=== PATIENT | male | born 1980 | race Caucasian/White ===

== ENCOUNTER 2018-12-30 16:48 | Emergency (ER) | payer BC, OTHER ==
--- NOTE | 2018-12-30 17:21 | EDM.PDOC ---
ED HPI GENERAL MEDICAL PROBLEM - General Chief Complaint: Eye Problems Stated Complaint: RED EYES Time Seen by Provider: 12/30/18 16:58 Source of Information: Reports: Patient History Limitations: Reports: No Limitations - History of Present Illness INITIAL COMMENTS - FREE TEXT/NARRATIVE: Presents reporting eye irritation. The patient states that one week ago he went to his eye doctor and got a new brand of contact lenses. As directed, he took the lenses out and cleaned them and then reinserted them. He wears them 24 7. Within 24 hours after the cleaning, his eyes are pink, red, itchy and irritated , with some yellowish discharge. Aside from a "film" over his eye at times his vision is good. He has a long time contact lens wearer. - Related Data Allergies Allergy/AdvReac Type Severity Reaction Status Date / Time No Known Allergies Allergy Verified 12/30/18 16:59 Home Meds: Home Meds Chema/Polymyx B Sulf/Dexameth [Tcbygs-Wkhag-Qgfpgvyq Eye Drop] 3 drop OP QID #1 bottle 12/30/18 [Rx] Past Medical History - Past Health History Medical/Surgical History: Denies Medical/Surgical History HEENT History: Reports: None Cardiovascular History: Reports: None Respiratory History: Reports: None Gastrointestinal History: Reports: None Genitourinary History: Reports: None Musculoskeletal History: Reports: None Neurological History: Reports: None Psychiatric History: Reports: None Endocrine/Metabolic History: Reports: None Hematologic History: Reports: None Immunologic History: Reports: None Oncologic (Cancer) History: Reports: None Dermatologic History: Reports: None - Infectious Disease History Infectious Disease History: Reports: Chicken Pox - Past Surgical History Head Surgeries/Procedures: Reports: None HEENT Surgical History: Reports: None Cardiovascular Surgical History: Reports: None Respiratory Surgical History: Reports: None GI Surgical History: Reports: None Male Surgical History: Reports: None Endocrine Surgical History: Reports: None Neurological Surgical History: Reports: None Musculoskeletal Surgical History: Reports: None Oncologic Surgical History: Reports: None Dermatological Surgical History: Reports: None Social & Family History - Family History Family Medical History: Noncontributory Cardiac: Reports: Hypertension - Tobacco Use Smoking Status *Q: Never Smoker - Caffeine Use Caffeine Use: Reports: Energy Drinks - Recreational Drug Use Recreational Drug Use: No ED ROS GENERAL - Review of Systems Review Of Systems: ROS reveals no pertinent complaints other than HPI. ED EXAM GENERAL W FULL EYE - Physical Exam Exam: See Below Exam Limited By: No Limitations General Appearance: Alert, No Apparent Distress Eye Exam: Bilateral Eye: Conjunctival Injection, EOMI, PERRL Visual Acuity (R) 20/: 20 Visual Acuity (L) 20/: 30 Eyelids: Bilateral: Normal Appearance Conjunctiva & Sclera: Bilateral: Discharge, Injected Extraocular Movements: Bilateral: Intact Pupils: Normal Accommodation Pupillary Size: Bilateral: 4 mm Pupillary Reaction: Bilateral: Brisk Ears: Normal External Exam Nose: Normal Inspection Throat/Mouth: Normal Inspection Head: Atraumatic, Normocephalic Neck: Normal Inspection Respiratory/Chest: No Respiratory Distress, Lungs Clear Cardiovascular: Normal Peripheral Pulses, Regular Rate, Rhythm, No Murmur Neurological: Alert, Oriented Psychiatric: Normal Affect, Normal Mood Skin Exam: Warm, Dry, Intact, Normal Color, No Rash Lymphatic: No Adenopathy Course - Vital Signs Last Recorded V/S: Last Vital Signs Temp 36.1 C 12/30/18 17:00 Pulse 91 12/30/18 17:00 Resp 18 12/30/18 17:00 BP 163/113 H 12/30/18 17:00 Pulse Ox 96 12/30/18 17:00 Departure - Departure Time of Disposition: 17:21 Disposition: Home, Self-Care 01 Condition: Good Clinical Impression: Conjunctivitis Qualifiers: Conjunctivitis type: acute Acute conjunctivitis type: unspecified Laterality: bilateral Qualified Code(s): H10.33 - Unspecified acute conjunctivitis, bilateral - Discharge Information Referrals: PCP,None [Primary Care Provider] - [facility] [Outside] Additional Instructions: 1. Eyedrops 2-3 drops 4 times a day at least 2-3 days until symptoms resolve. 2. Throw away current set of contact lenses. After all symptoms resolve place a new pair of contact lenses 3. After disinfecting, thoroughly rinse with plain saline. 4. 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
== END 2018-12-30 17:35 | disposition home or self-care (01) ==
LOC: MW.ED 16:48
DX: H10.33 Unspecified acute conjunctivitis, bilateral (principal)
CPT/HCPCS: 99282

== ENCOUNTER 2019-02-18 04:56 | Emergency (ER) | payer SELFPAY ==
--- NOTE | 2019-02-18 05:07 | EDM.PDOC ---
ED HPI GENERAL MEDICAL PROBLEM - General Chief Complaint: Lower Extremity Injury/Pain Stated Complaint: GOUT FLAREUP IN LEFT KNEE Time Seen by Provider: 02/18/19 05:04 - History of Present Illness INITIAL COMMENTS - FREE TEXT/NARRATIVE: HISTORY AND PHYSICAL: History of present illness: The patient is a 38-year-old male has a history of 2 prior gout attacks in his feet presents with onset of left knee pain that started 2 days ago and has been gradually worsening. He says the pain feels very similar to his prior gout attack. He denies any trauma with that knee and he has no systemic complaints of fever chills nausea vomiting chest pain or shortness of breath. The patient says in the past he had his blood tested which showed an elevated uric acid. He says that in the past he has been treated with prednisone and it is improved and he took allopurinol for 2 months and he did not have any gout until this recent episode. He follows at [facility] with Dr. Rueda. He has no weakness neurosensory changes in his left leg and no other joint pain or swelling. Review of systems: As per history of present illness and below otherwise all systems reviewed and negative. Past medical history: As per history of present illness and as reviewed below otherwise noncontributory. Surgical history: As per history of present illness and as reviewed below otherwise noncontributory. Social history: No reported history of drug or alcohol abuse. Family history: As per history of present illness and as reviewed below otherwise noncontributory. Physical exam: General: Well-developed well-nourished man who is nontoxic and vital signs are noted by me HEENT: Atraumatic, normocephalic, negative for conjunctival pallor or scleral icterus, mucous membranes moist, throat clear, neck supple, nontender, trachea midline. Lungs: Clear to auscultation, breath sounds equal bilaterally, chest nontender. Heart: S1S2, regular rate and rhythm no overt murmurs Abdomen: Soft, nondistended, nontender. Negative for masses or hepatosplenomegaly. Negative for costovertebral tenderness. Pelvis: Stable nontender. Genitourinary: Deferred. Rectal: Deferred. Extremities: Atraumatic and full range of motion of all extremities with the exception of the left knee where there is decreased range of motion secondary to discomfort. There are no palpable bony deformities and there is only minimal soft tissue swelling and no evidence of any erythema or ecchymosis. There is some palpable warmth compared to the right knee and there is no evidence of any distal or proximal bony tenderness defects or deformities. The legs are, negative for cords or calf pain. Neurovascular unremarkable. Neuro: Awake, alert, oriented. Cranial nerves II through XII unremarkable. Cerebellum unremarkable. Motor and sensory unremarkable throughout. Exam nonfocal. Diagnostics: I offered the patient x-ray as well as blood work and he declines Therapeutics: Toradol prednisone Milo bandage/neoprene sling Patient was offered diagnostic testing as above but he declines and wants to be treated solely as gout with anti-inflammatories and steroids as I recommended. Impression: Left knee pain with history of gout Definitive disposition and diagnosis as appropriate pending reevaluation and review of above. left knee Pain Score (Numeric/FACES): 8 - Related Data Allergies Allergy/AdvReac Type Severity Reaction Status Date / Time No Known Allergies Allergy Verified 02/18/19 05:04 Past Medical History - Past Health History Medical/Surgical History: Denies Medical/Surgical History HEENT History: Reports: None Cardiovascular History: Reports: None Respiratory History: Reports: None Gastrointestinal History: Reports: None Genitourinary History: Reports: None Musculoskeletal History: Reports: None Neurological History: Reports: None Psychiatric History: Reports: None Endocrine/Metabolic History: Reports: None Hematologic History: Reports: None Immunologic History: Reports: None Oncologic (Cancer) History: Reports: None Dermatologic History: Reports: None - Infectious Disease History Infectious Disease History: Reports: Chicken Pox - Past Surgical History Head Surgeries/Procedures: Reports: None HEENT Surgical History: Reports: None Cardiovascular Surgical History: Reports: None Respiratory Surgical History: Reports: None GI Surgical History: Reports: None Male Surgical History: Reports: None Endocrine Surgical History: Reports: None Neurological Surgical History: Reports: None Musculoskeletal Surgical History: Reports: None Oncologic Surgical History: Reports: None Dermatological Surgical History: Reports: None Social & Family History - Family History Family Medical History: Noncontributory Cardiac: Reports: Hypertension - Caffeine Use Caffeine Use: Reports: Energy Drinks Review of Systems - Review of Systems Review Of Systems: ROS reveals no pertinent complaints other than HPI. ED EXAM, GENERAL - Physical Exam Exam: See Below (see dictation) Course - Vital Signs Last Recorded V/S: Last Vital Signs Temp 36.0 C 02/18/19 05:05 Pulse 108 H 02/18/19 05:05 Resp 18 02/18/19 05:05 BP 199/120 H 02/18/19 05:05 Pulse Ox 98 02/18/19 05:05 - Orders/Labs/Meds Orders: Active Orders 24 hr Category Date Time Status Ketorolac [Toradol] Med 02/18/19 05:12 Once 60 mg IM ONETIME ONE predniSONE Med 02/18/19 05:13 Once 20 mg PO ONETIME ONE Departure - Departure Time of Disposition: 05:16 Disposition: Home, Self-Care 01 Condition: Good Clinical Impression: History of gout Left knee pain Qualifiers: Chronicity: acute Qualified Code(s): M25.562 - Pain in left knee - Discharge Information Referrals: PCP,None [Primary Care Provider] - Forms: ED Department Discharge Additional Instructions: The following information is given to patients seen in the emergency department who are being discharged to home. This information is to outline your options for follow-up care. We provide all patients seen in our emergency department with a follow-up referral. The need for follow-up, as well as the timing and circumstances, are variable depending upon the specifics of your emergency department visit. If you don't have a primary care physician on staff, we will provide you with a referral. We always advise you to contact your personal physician following an emergency department visit to inform them of the circumstance of the visit and for follow-up with them and/or the need for any referrals to a consulting specialist. The emergency department will also refer you to a specialist when appropriate. This referral assures that you have the opportunity for followup care with a specialist. All of these measure are taken in an effort to provide you with optimal care, which includes your followup. Under all circumstances we always encourage you to contact your private physician who remains a resource for coordinating your care. When calling for followup care, please make the office aware that this follow-up is from your recent emergency room visit. If for any reason you are refused follow-up, please contact the [facility] emergency department at and ask to speak to the emergency department charge nurse. [facility] Primary care- Internal Medicine and Family [place] [phone] Ice and elevate the area as much as possible and wear the splint given to you for support and to reduce swelling. Please take all medications as prescribed and please schedule a follow-up appointment with your provider Dr. Rueda at [facility] for further care and evaluation as we discussed. Return to ER as needed and as discussed - My Orders Last 24 Hours: My Active Orders 02/18/19 05:12 Ketorolac [Toradol] 60 mg IM ONETIME ONE 02/18/19 05:13 predniSONE 20 mg PO ONETIME ONE - Assessment/Plan Last 24 Hours: My Active Orders 02/18/19 05:12 Ketorolac [Toradol] 60 mg IM ONETIME ONE 02/18/19 05:13 predniSONE 20 mg PO ONETIME ONE
[2019-02-18] MEDS ORDERED: Ketorolac 60 MG/2 ML SDV IM ONE (05:12)
[2019-02-18] MEDS ORDERED: predniSONE 20 MG Tab PO ONE (05:13)
== END 2019-02-18 05:52 | disposition home or self-care (01) ==
LOC: MW.ED 04:56
DX: M25.562 Pain in left knee (principal); M10.9 Gout, unspecified
CPT/HCPCS: 96372; 99283; A9270; J1885

== ENCOUNTER 2019-03-04 12:27 | Emergency (ER) | payer SELFPAY ==
[2019-03-04] MEDS ORDERED: Tetracaine HCl/PF 0.5% 4 ML Bottle EYEBOTH ONE (12:46)
--- NOTE | 2019-03-04 12:47 | EDM.PDOC ---
ED HPI GENERAL MEDICAL PROBLEM - General Chief Complaint: Eye Problems Stated Complaint: LEFT EYE PINK Time Seen by Provider: 03/04/19 12:47 Source of Information: Reports: Patient History Limitations: Reports: No Limitations - History of Present Illness INITIAL COMMENTS - FREE TEXT/NARRATIVE: HISTORY AND PHYSICAL: History of present illness: Patient is a 38-year-old male presents to the ED was completed of left eye irritation. He states that he got new contacts that are able to sleep in and states that he thinks they are bothering his eyes now. He got these new contacts 2 weeks ago and states he took them out a week ago to clean them and put them back in again. He states his eye started bothering him yesterday sees no longer wearing a contact the left eye. He does feel like there is something in his eye and it is slightly painful and light sensitive. He denies pain with eye movement, fevers, chills, headache. Review of systems: As per history of present illness and below otherwise all systems reviewed and negative. Past medical history: As per history of present illness and as reviewed below otherwise noncontributory. Surgical history: As per history of present illness and as reviewed below otherwise noncontributory. Social history: No reported history of drug or alcohol abuse. Family history: As per history of present illness and as reviewed below otherwise noncontributory. Physical exam: General: Patient sitting comfortably in no acute distress and nontoxic appearing HEENT: Left eye is injected. No pain with EOM. No foreign body with lid eversion. Small corneal abrasion with fluorescein stain and woodslamp exam. Atraumatic, normocephalic, pupils reactive, negative for conjunctival pallor or scleral icterus, mucous membranes moist, throat clear, neck supple, nontender, trachea midline. No meningeal signs. Lungs: Clear to auscultation, breath sounds equal bilaterally, chest nontender. Heart: S1S2, regular, negative for clicks, rubs, or overt murmur. Abdomen: Soft, nondistended, nontender. Negative for masses or hepatosplenomegaly. Negative for costovertebral tenderness. No rigidity, rebound , guarding. Pelvis: Stable nontender. Genitourinary: Deferred. Rectal: Deferred. Extremities: Atraumatic, negative for cords or calf pain. Neurovascular unremarkable. Neuro: Awake, alert, oriented. Cranial nerves II through XII unremarkable. Cerebellum unremarkable. Motor and sensory unremarkable throughout. Exam nonfocal. Notes: Diagnostics: Woodslamp exam Therapeutics: tetracaine ophthalmic Prescriptions: Impression: Corneal abrasion Plan: Use antibiotic ointment as instructed Follow-up with line erector Return to ED as needed as discussed Definitive disposition and diagnosis as appropriate pending reevaluation and review of above. Left Eye Pain Score (Numeric/FACES): 8 - Related Data Allergies Allergy/AdvReac Type Severity Reaction Status Date / Time No Known Allergies Allergy Verified 03/04/19 12:45 Home Meds: Home Meds . [No Known Home Meds] 03/04/19 [History] Past Medical History - Past Health History Medical/Surgical History: Denies Medical/Surgical History HEENT History: Reports: None Cardiovascular History: Reports: None Respiratory History: Reports: None Gastrointestinal History: Reports: None Genitourinary History: Reports: None Musculoskeletal History: Reports: None Neurological History: Reports: None Psychiatric History: Reports: None Endocrine/Metabolic History: Reports: None Hematologic History: Reports: None Immunologic History: Reports: None Oncologic (Cancer) History: Reports: None Dermatologic History: Reports: None - Infectious Disease History Infectious Disease History: Reports: Chicken Pox - Past Surgical History Head Surgeries/Procedures: Reports: None HEENT Surgical History: Reports: None Cardiovascular Surgical History: Reports: None Respiratory Surgical History: Reports: None GI Surgical History: Reports: None Male Surgical History: Reports: None Endocrine Surgical History: Reports: None Neurological Surgical History: Reports: None Musculoskeletal Surgical History: Reports: None Oncologic Surgical History: Reports: None Dermatological Surgical History: Reports: None Social & Family History - Family History Family Medical History: Noncontributory Cardiac: Reports: Hypertension - Caffeine Use Caffeine Use: Reports: Energy Drinks ED ROS GENERAL - Review of Systems Review Of Systems: ROS reveals no pertinent complaints other than HPI. ED EXAM GENERAL W FULL EYE - Physical Exam Exam: See Below (See dictation) Course - Vital Signs Last Recorded V/S: Last Vital Signs Temp 96.9 F 03/04/19 12:39 Pulse 74 03/04/19 12:39 Resp 18 03/04/19 12:39 BP 171/100 H 03/04/19 12:39 Pulse Ox 94 L 03/04/19 12:39 - Orders/Labs/Meds Meds: Medications Discontinued Medications Generic Name Dose Route Start Last Admin Trade Name Sherri PRN Reason Stop Dose Admin Tetracaine HCl 1 ml 03/04/19 12:46 03/04/19 13:11 Tetracaine 0.5% Steri-Unit Gerda EYEBOTH 03/04/19 12:47 1 bottle ASDIRECTED ONE Administration Departure - Departure Time of Disposition: 13:13 Disposition: Home, Self-Care 01 Condition: Good Clinical Impression: Corneal abrasion, left - Discharge Information Referrals: PCP,None [Primary Care Provider] - Forms: ED Department Discharge Additional Instructions: The following information is given to patients seen in the emergency department who are being discharged to home. This information is to outline your options for follow-up care. We provide all patients seen in our emergency department with a follow-up referral. The need for follow-up, as well as the timing and circumstances, are variable depending upon the specifics of your emergency department visit. If you don't have a primary care physician on staff, we will provide you with a referral. We always advise you to contact your personal physician following an emergency department visit to inform them of the circumstance of the visit and for follow-up with them and/or the need for any referrals to a consulting specialist. The emergency department will also refer you to a specialist when appropriate. This referral assures that you have the opportunity for follow-up care with a specialist. All of these measure are taken in an effort to provide you with optimal care, which includes your follow-up. Under all circumstances we always encourage you to contact your private physician who remains a resource for coordinating your care. When calling for follow-up care, please make the office aware that this follow-up is from your recent emergency room visit. If for any reason you are refused follow-up, please contact the [facility] Emergency Department at and asked to speak to the emergency department charge nurse. [facility] [address] [place] [address] Use antibiotic ointment as instructed Follow-up with line erector Return to ED as needed as discussed
== END 2019-03-04 13:25 | disposition home or self-care (01) ==
LOC: MW.ED 12:27
DX: S05.02XA Injury of conjunctiva and corneal abrasion without foreign body, left eye, initial encounter (principal); X58.XXXA Exposure to other specified factors, initial encounter
CPT/HCPCS: 99282

== ENCOUNTER 2019-07-07 10:42 | Emergency (ER) | payer SELFPAY ==
--- NOTE | 2019-07-07 11:10 | EDM.PDOC ---
ED HPI GENERAL MEDICAL PROBLEM - General Chief Complaint: Lower Extremity Injury/Pain Stated Complaint: GOUT FLARE UP Time Seen by Provider: 07/07/19 10:48 Source of Information: Reports: Patient History Limitations: Reports: No Limitations - History of Present Illness INITIAL COMMENTS - FREE TEXT/NARRATIVE: HISTORY AND PHYSICAL: History of present illness: Patient is a 38-year-old male who presents to the emergency room today with complaints of gout flareup. Patient states he has a history of gout and has not been taking his allopurinol as directed. He states with the holidays he has had a poor diet and has noticed some pain to the right knee. He states he has had at least 4 other gout flare ups which feels very similar to today's presentation. He denies any injury, trauma or falls. Skin is free of erythema, denies any fever/chills and denies any numbness or tingling of the affected extremity. Review of systems: As per history of present illness and below otherwise all systems reviewed and negative. Past medical history: As per history of present illness and as reviewed below otherwise noncontributory. Surgical history: As per history of present illness and as reviewed below otherwise noncontributory. Social history: See social history for further information Family history: As per history of present illness and as reviewed below otherwise noncontributory. Physical exam: General: Well-developed and well-nourished 38-year-old male. Alert and oriented. Nontoxic appearing and in no acute distress. HEENT: Atraumatic, normocephalic, pupils equal and reactive bilaterally, negative for conjunctival pallor or scleral icterus, mucous membranes moist, trachea midline. No drooling or trismus noted. No meningeal signs. No hot potato voice noted. Lungs: Clear to auscultation, breath sounds equal bilaterally, chest nontender. Heart: S1S2, regular rate and rhythm without overt murmur Abdomen: Soft, nondistended, nontender. Negative for masses or hepatosplenomegaly. Negative for costovertebral tenderness. Pelvis: Stable nontender. Skin: Intact, warm, dry. No lesions or rashes noted. Extremities: Atraumatic, moves all extremities per self without difficulty or deficits, negative for cords or calf pain. Neurovascular unremarkable. Neuro: Awake, alert, oriented. Cranial nerves II through XII unremarkable. Cerebellum unremarkable. Motor and sensory unremarkable throughout. Exam nonfocal. Notes: Patient declines wanting any diagnostics at this time. He states he is confident this is a gout flareup. The skin and extremity. Within normal limits. I did educate him on the medication and going to prescribe. Today's blood pressure is elevated. He states "this happens every time I come into the hospital". He declines wanting this evaluated further as he does monitor his blood pressure at home and states yesterday it was "normal". Supportive care measures were reviewed and discussed. Voices understanding and is agreeable to plan of care. Denies any further questions or concerns at this time. Diagnostics: None Therapeutics: None Prescription: Colchicine, indomethacin, prednisone Impression: Gout, left knee Medication noncompliance Plan: 1. Monitor your diet while you have the gout flare. 2. Take the medications as directed. 3. Follow up with your primary care provider as we discussed. Return to the ED as needed as discussed. Definitive disposition and diagnosis as appropriate pending reevaluation and review of above. - Related Data Allergies Allergy/AdvReac Type Severity Reaction Status Date / Time No Known Allergies Allergy Verified 03/04/19 12:45 Home Meds: Home Meds Colchicine 1 dose PO ASDIRECTED #3 tablet 07/07/19 [Rx] Indomethacin 50 mg PO TID 10 Days #30 capsule 07/07/19 [Rx] predniSONE [Prednisone] 30 mg PO DAILY 5 Days #15 tablet 07/07/19 [Rx] Past Medical History - Past Health History Medical/Surgical History: Denies Medical/Surgical History HEENT History: Reports: None Cardiovascular History: Reports: None Respiratory History: Reports: None Gastrointestinal History: Reports: None Genitourinary History: Reports: None Musculoskeletal History: Reports: None Neurological History: Reports: None Psychiatric History: Reports: None Endocrine/Metabolic History: Reports: None Hematologic History: Reports: None Immunologic History: Reports: None Oncologic (Cancer) History: Reports: None Dermatologic History: Reports: None - Infectious Disease History Infectious Disease History: Reports: Chicken Pox - Past Surgical History Head Surgeries/Procedures: Reports: None HEENT Surgical History: Reports: None Cardiovascular Surgical History: Reports: None Respiratory Surgical History: Reports: None GI Surgical History: Reports: None Male Surgical History: Reports: None Endocrine Surgical History: Reports: None Neurological Surgical History: Reports: None Musculoskeletal Surgical History: Reports: None Oncologic Surgical History: Reports: None Dermatological Surgical History: Reports: None Social & Family History - Family History Family Medical History: Noncontributory Cardiac: Reports: Hypertension - Caffeine Use Caffeine Use: Reports: Energy Drinks Review of Systems - Review of Systems Review Of Systems: Comprehensive ROS is negative, except as noted in HPI. ED EXAM, GENERAL - Physical Exam Exam: See Below (See dictation) Course - Vital Signs Last Recorded V/S: Last Vital Signs Temp 98.0 F 07/07/19 11:04 Pulse 88 07/07/19 11:04 Resp 18 07/07/19 11:04 BP 176/116 H 07/07/19 11:04 Pulse Ox Departure - Departure Time of Disposition: 11:09 Disposition: Home, Self-Care 01 Clinical Impression: Noncompliance with medication regimen Gout attack Qualifiers: Gout site: knee Gout etiology: unspecified cause Laterality: right Qualified Code(s): M10.9 - Gout, unspecified - Discharge Information Prescriptions: Colchicine 1 dose PO ASDIRECTED #3 tablet Indomethacin 50 mg PO TID 10 Days #30 capsule predniSONE [Prednisone] 30 mg PO DAILY 5 Days #15 tablet Instructions: Gout, [id number] Referrals: PCP,None [Primary Care Provider] - Forms: ED Department Discharge Additional Instructions: The following information is given to patients seen in the emergency department who are being discharged to home. This information is to outline your options for follow-up care. We provide all patients seen in our emergency department with a follow-up referral. The need for follow-up, as well as the timing and circumstances, are variable depending upon the specifics of your emergency department visit. If you don't have a primary care physician on staff, we will provide you with a referral. We always advise you to contact your personal physician following an emergency department visit to inform them of the circumstance of the visit and for follow-up with them and/or the need for any referrals to a consulting specialist. The emergency department will also refer you to a specialist when appropriate. This referral assures that you have the opportunity for follow-up care with a specialist. All of these measure are taken in an effort to provide you with optimal care, which includes your follow-up. Under all circumstances we always encourage you to contact your private physician who remains a resource for coordinating your care. When calling for follow-up care, please make the office aware that this follow-up is from your recent emergency room visit. If for any reason you are refused follow-up, please contact the [facility] Emergency Department at and asked to speak to the emergency department charge nurse. [facility] [address] [place] [id number] [facility] [address] [place] [id number] 1. Monitor your diet while you have the gout flare. 2. Take the medications as directed. 3. Follow up with your primary care provider as we discussed. Return to the ED as needed as discussed. Sepsis Event Note - Focused Exam Vital Signs: Vital Signs Temp Pulse Resp BP 07/07/19 11:04 98.0 F 88 18 176/116 H Date Exam was Performed: 07/07/19 Time Exam was Performed: 11:20
== END 2019-07-07 11:24 | disposition home or self-care (01) ==
LOC: MW.ED 10:42
DX: M10.9 Gout, unspecified (principal); Z91.14 Patient's other noncompliance with medication regimen
CPT/HCPCS: 99282; 99283

== ENCOUNTER 2020-01-25 16:14 | Emergency (ER) | payer SELFPAY ==
[2020-01-25] MEDS ORDERED: Sodium Chloride 0.9% 1,000 ML IV ONE (16:34)
[2020-01-25] MEDS ORDERED: Ondansetron 4 MG/2 ML SDV IVPUSH ONE (17:01)
--- NOTE | 2020-01-25 17:01 | EDM.PDOC ---
ED HPI GENERAL MEDICAL PROBLEM - General Chief Complaint: Gastrointestinal Problem Stated Complaint: NAUSEA/VOMITING Time Seen by Provider: 01/25/20 16:28 Source of Information: Reports: Patient History Limitations: Reports: No Limitations - History of Present Illness INITIAL COMMENTS - FREE TEXT/NARRATIVE: HISTORY AND PHYSICAL: History of present illness: Patient is a 39-year-old male who presents to the emergency room with complaints of nausea and vomiting that started this morning. He does not recall anything in particular that precipitated his symptoms. He is concerned he may be dehydrated due to the frequent vomiting. He states he has been scared to eat or drink with concern he may "puke". He does want to bring it to my attention that he had recently been brought back to work after having been laid off for 6 months. He states during that time he had been drinking quite heavily out of boredom. States he has not had any alcohol in approximately 2 weeks. Denies any drug abuse. Patient denies any fever, chills, headache, change in vision, syncope or near syncope. Denies any chest pain, back pain, shortness of breath or cough. Denies any abdominal pain, diarrhea, constipation or dysuria. Has not noted any blood in urine or stool. He denies any recent exposures to anyone who is been ill, no recent travel. Review of systems: As per history of present illness and below otherwise all systems reviewed and negative. Past medical history: As per history of present illness and as reviewed below otherwise noncontributory. Surgical history: As per history of present illness and as reviewed below otherwise noncontributory. Social history: See social history for further information Family history: As per history of present illness and as reviewed below otherwise noncontributory. Physical exam: General: Well-developed and well-nourished 39-year-old male. Alert and oriented. Nontoxic-appearing and in no acute distress. HEENT: Atraumatic, normocephalic, pupils equal and reactive bilaterally, negative for conjunctival pallor or scleral icterus, mucous membranes moist, TMs normal bilaterally, throat clear, neck supple, nontender, trachea midline. No drooling or trismus noted. No meningeal signs. No hot potato voice noted. Lungs: Clear to auscultation, breath sounds equal bilaterally, chest nontender. Heart: S1S2, regular rate and rhythm without overt murmur Abdomen: Soft, nondistended, nontender. No rebound tenderness. Negative Tello sign. Negative for masses or hepatosplenomegaly. Negative for costovertebral tenderness. Skin: Intact, warm, dry. No jaundice noted. No lesions or rashes noted. Extremities: Atraumatic, moves all extremities per self without difficulty or deficits, negative for cords or calf pain. Neurovascular unremarkable. Neuro: Awake, alert, oriented. Cranial nerves II through XII unremarkable. Cerebellum unremarkable. Motor and sensory unremarkable throughout. Exam nonfocal. Notes: Patient's total bili is 1.4 with moderate noted in urine. He is feeling better after the IV fluids and Zofran. Continues to deny any abdominal pain. He is agreeable to doing an ultrasound of his gallbladder due to his lab values. We will give him some Cipro for his bladder infection. He refuses wanting any STD screening at this time. Vital signs remained stable. Verbally reviewed case with Dr Allison. Ultrasound shows small amount of sludge within the gallbladder with no biliary duct dilatation. Pseudo-wall thickening is noted within the gallbladder due to lack of good distention. Liver is generous in size, due to fatty infiltration. There is some bowel gas obscuring midline structures. fuel verification technician sees no obstructing stones. Hepatitis panel has been added onto patient lab work. We did discuss the diagnostic findings in detail. He states he feels much improved after the IV fluids and Zofran. I have encouraged him to follow-up with his primary care provider, calling tomorrow to make a follow-up appointment regarding his abnormal lab values. We discussed signs and symptoms that would prompt him to return to the emergency room. Follow-up, medication and supportive care measures were reviewed and discussed. Voices understanding and is agreeable to plan of care. Denies any further questions or concerns at this time. Diagnostics: CBC, CMP, UA, lipase, U/S gallbladder, Hepatitis Panel Therapeutics: IV fluid, Zofran, Cipro Prescription: Cipro Impression: Nausea and vomiting Elevated bilirubin UTI Plan: 1. Your lab work shows that your bilirubin is elevated. We did an ultrasound that shows your gallbladder is within normal limits at this time. A hepatitis panel has been added to your lab work, this is a send out. We will not get results of this test till the end of the week. If you should have any new or worsening symptoms please return to the ED. 2. [place] diet, advance as tolerated. Increase your oral fluids to prevent dehydration. You may alternate Tylenol and ibuprofen as needed for pain management. 3. Follow-up with your primary care provider as we discussed. Return to the ED as needed and as discussed. Definitive disposition and diagnosis as appropriate pending reevaluation and review of above. - Related Data Allergies Allergy/AdvReac Type Severity Reaction Status Date / Time No Known Allergies Allergy Verified 01/25/20 16:54 Home Meds: Home Meds Ciprofloxacin HCl [Cipro] 500 mg PO BID 5 Days #10 tablet 01/25/20 [Rx] Past Medical History - Past Health History Medical/Surgical History: Denies Medical/Surgical History HEENT History: Reports: None Cardiovascular History: Reports: None Respiratory History: Reports: None Gastrointestinal History: Reports: None Genitourinary History: Reports: None Musculoskeletal History: Reports: None Other Musculoskeletal History: lower extremity pain from gout Neurological History: Reports: None Psychiatric History: Reports: None Endocrine/Metabolic History: Reports: None Hematologic History: Reports: None Immunologic History: Reports: None Oncologic (Cancer) History: Reports: None Dermatologic History: Reports: None - Infectious Disease History Infectious Disease History: Reports: Chicken Pox - Past Surgical History Head Surgeries/Procedures: Reports: None HEENT Surgical History: Reports: None Cardiovascular Surgical History: Reports: None Respiratory Surgical History: Reports: None GI Surgical History: Reports: None Male Surgical History: Reports: None Endocrine Surgical History: Reports: None Neurological Surgical History: Reports: None Musculoskeletal Surgical History: Reports: None Oncologic Surgical History: Reports: None Dermatological Surgical History: Reports: None Social & Family History - Family History Family Medical History: Noncontributory Cardiac: Reports: Hypertension - Caffeine Use Caffeine Use: Reports: Energy Drinks ED ROS GENERAL - Review of Systems Review Of Systems: Comprehensive ROS is negative, except as noted in HPI. ED EXAM, GI/ABD - Physical Exam Exam: See Below (See dictation) Course - Vital Signs Last Recorded V/S: Last Vital Signs Temp 97.7 F 01/25/20 16:55 Pulse 88 01/25/20 16:55 Resp 17 01/25/20 16:55 BP 142/85 H 01/25/20 16:55 Pulse Ox 95 01/25/20 16:55 - Orders/Labs/Meds Orders: Active Orders 24 hr Category Date Time Status CULTURE URINE [RM] Stat Lab 01/25/20 17:01 Received HEPATITIS PANEL (4) [REF] Stat Lab 01/25/20 19:35 Ordered Labs: Laboratory Tests 01/25/20 01/25/20 01/25/20 Range/Units 17:01 17:11 17:11 WBC 9.20 (4.0-11.0) K/uL RBC 4.16 L (4.50-5.90) M/uL Hgb 14.1 (13.0-17.0) g/dL Hct 41.1 (38.0-50.0) % MCV 98.8 H (80.0-98.0) fL MCH 33.9 H (27.0-32.0) pg MCHC 34.3 (31.0-37.0) g/dL RDW Std Deviation 49.5 (28.0-62.0) fl RDW Coeff of Jannette 14 (11.0-15.0) % Plt Count 204 (150-400) K/uL MPV 9.10 (7.40-12.00) fL Neut % (Auto) 70.4 (48.0-80.0) % Lymph % (Auto) 17.4 (16.0-40.0) % [place] % (Auto) 10.5 (0.0-15.0) % Eos % (Auto) 0.9 (0.0-7.0) % Baso % (Auto) 0.8 (0.0-1.5) % Neut # (Auto) 6.5 H (1.4-5.7) K/uL Lymph # (Auto) 1.6 (0.6-2.4) K/uL [place] # (Auto) 1.0 H (0.0-0.8) K/uL Eos # (Auto) 0.1 (0.0-0.7) K/uL Baso # (Auto) 0.1 (0.0-0.1) K/uL Nucleated RBC % 0.0 /100WBC Nucleated RBCs # 0 K/uL Sodium 136 (136-148) mmol/L Potassium 3.4 L (3.5-5.1) mmol/L Chloride 100 (98-107) mmol/L Carbon Dioxide 26.0 (21.0-32.0) mmol/L BUN 3 L (7.0-18.0) mg/dL Creatinine 0.6 L (0.8-1.3) mg/dL Est Cr Clr Drug Dosing 168.98 mL/min Estimated GFR (MDRD) > 60.0 ml/min Glucose 121 H (74-106) mg/dL Calcium 9.4 (8.5-10.1) mg/dL Total Bilirubin 1.4 H (0.2-1.0) mg/dL AST 164 H (15-37) IU/L ALT 61 (14-63) IU/L Alkaline Phosphatase 461 H (46-116) U/L Total Protein 9.8 H (6.4-8.2) g/dL Albumin 3.3 L (3.4-5.0) g/dL Globulin 6.5 H (2.6-4.0) g/dL Albumin/Globulin Ratio 0.5 L (0.9-1.6) Lipase (73-393) U/L Urine Color DARK YELLOW Urine Appearance SLT CLOUDY Urine pH 6.0 (5.0-8.0) Ur Specific [place] >= 1.030 (1.001-1.035) Urine Protein 30 H (NEGATIVE) mg/dL Urine Glucose (UA) NEGATIVE (NEGATIVE) mg/dL Urine Ketones TRACE H (NEGATIVE) mg/dL Urine Occult Blood NEGATIVE (NEGATIVE) Urine Nitrite POSITIVE H (NEGATIVE) Urine Bilirubin MODERATE H (NEGATIVE) Urine Ictotest NEGATIVE Urine Urobilinogen 4.0 H (<2.0) EU/dL Ur Leukocyte Esterase NEGATIVE (NEGATIVE) Urine RBC NONE SEEN (0-2/HPF) Urine WBC 2-4 (0-5/HPF) Ur Epithelial Cells NOT SEEN (NONE-FEW) Amorphous Sediment MODERATE (NEGATIVE) Urine Bacteria 1+ H (NEGATIVE) Urine Mucus FEW (NONE-MOD) 01/25/20 Range/Units 17:11 WBC (4.0-11.0) K/uL RBC (4.50-5.90) M/uL Hgb (13.0-17.0) g/dL Hct (38.0-50.0) % MCV (80.0-98.0) fL MCH (27.0-32.0) pg MCHC (31.0-37.0) g/dL RDW Std Deviation (28.0-62.0) fl RDW Coeff of Jannette (11.0-15.0) % Plt Count (150-400) K/uL MPV (7.40-12.00) fL Neut % (Auto) (48.0-80.0) % Lymph % (Auto) (16.0-40.0) % [place] % (Auto) (0.0-15.0) % Eos % (Auto) (0.0-7.0) % Baso % (Auto) (0.0-1.5) % Neut # (Auto) (1.4-5.7) K/uL Lymph # (Auto) (0.6-2.4) K/uL [place] # (Auto) (0.0-0.8) K/uL Eos # (Auto) (0.0-0.7) K/uL Baso # (Auto) (0.0-0.1) K/uL Nucleated RBC % /100WBC Nucleated RBCs # K/uL Sodium (136-148) mmol/L Potassium (3.5-5.1) mmol/L Chloride (98-107) mmol/L Carbon Dioxide (21.0-32.0) mmol/L BUN (7.0-18.0) mg/dL Creatinine (0.8-1.3) mg/dL Est Cr Clr Drug Dosing mL/min Estimated GFR (MDRD) ml/min Glucose (74-106) mg/dL Calcium (8.5-10.1) mg/dL Total Bilirubin (0.2-1.0) mg/dL AST (15-37) IU/L ALT (14-63) IU/L Alkaline Phosphatase (46-116) U/L Total Protein (6.4-8.2) g/dL Albumin (3.4-5.0) g/dL Globulin (2.6-4.0) g/dL Albumin/Globulin Ratio (0.9-1.6) Lipase 161 (73-393) U/L Urine Color Urine Appearance Urine pH (5.0-8.0) Ur Specific [place] (1.001-1.035) Urine Protein (NEGATIVE) mg/dL Urine Glucose (UA) (NEGATIVE) mg/dL Urine Ketones (NEGATIVE) mg/dL Urine Occult Blood (NEGATIVE) Urine Nitrite (NEGATIVE) Urine Bilirubin (NEGATIVE) Urine Ictotest Urine Urobilinogen (<2.0) EU/dL Ur Leukocyte Esterase (NEGATIVE) Urine RBC (0-2/HPF) Urine WBC (0-5/HPF) Ur Epithelial Cells (NONE-FEW) Amorphous Sediment (NEGATIVE) Urine Bacteria (NEGATIVE) Urine Mucus (NONE-MOD) Meds: Medications Discontinued Medications Generic Name Dose Route Start Last Admin Trade Name Freq PRN Reason Stop Dose Admin Ciprofloxacin 500 mg 01/25/20 17:44 01/25/20 18:29 Ciprofloxacin Hcl PO 01/25/20 17:45 500 mg ONETIME ONE Administration Sodium Chloride 1,000 mls @ 999 mls/hr 01/25/20 16:34 01/25/20 17:05 Normal Saline IV 01/25/20 17:34 999 mls/hr STAT ONE Administration Ondansetron HCl 4 mg 01/25/20 17:01 01/25/20 17:16 Zofran IVPUSH 01/25/20 17:02 4 mg ONETIME ONE Administration Departure - Departure Time of Disposition: 19:50 Disposition: Home, Self-Care 01 Clinical Impression: UTI, Urinary tract infectious disease, Total bilirubin, elevated Nausea and vomiting Qualifiers: Vomiting type: unspecified Vomiting Intractability: non-intractable Qualified Code(s): R11.2 - Nausea with vomiting, unspecified - Discharge Information Prescriptions: Ciprofloxacin HCl [Cipro] 500 mg PO BID 5 Days #10 tablet Instructions: Urinary Tract Infection, Adult, [id number] Referrals: PCP,None [Primary Care Provider] - Forms: ED Department Discharge Additional Instructions: The following information is given to patients seen in the emergency department who are being discharged to home. This information is to outline your options for follow-up care. We provide all patients seen in our emergency department with a follow-up referral. The need for follow-up, as well as the timing and circumstances, are variable depending upon the specifics of your emergency department visit. If you don't have a primary care physician on staff, we will provide you with a referral. We always advise you to contact your personal physician following an emergency department visit to inform them of the circumstance of the visit and for follow-up with them and/or the need for any referrals to a consulting specialist. The emergency department will also refer you to a specialist when appropriate. This referral assures that you have the opportunity for follow-up care with a specialist. All of these measure are taken in an effort to provide you with optimal care, which includes your follow-up. Under all circumstances we always encourage you to contact your private physician who remains a resource for coordinating your care. When calling for follow-up care, please make the office aware that this follow-up is from your recent emergency room visit. If for any reason you are refused follow-up, please contact the [facility] Emergency Department at and asked to speak to the emergency department charge nurse. [facility] [address] [place] [id number] [facility] [address] [place] [id number] Thank you for choosing the [facility] emergency department in [place] for your medical needs today. It was a pleasure caring for you. You were seen in the emergency department for nausea and vomiting. 1. Your lab work shows that your bilirubin is elevated. We did an ultrasound that shows your gallbladder is within normal limits at this time. A hepatitis panel has been added to your lab work, this is a send out test. We will not get results of this test till the end of the week. If you should have any new or worsening symptoms please return to the ED. 2. [place] diet, advance as tolerated. Increase your oral fluids to prevent dehydration. You may alternate Tylenol and ibuprofen as needed for pain management. 3. Follow-up with your primary care provider as we discussed. Return to the ED as needed and as discussed. Sepsis Event Note (ED) - Focused Exam Vital Signs: Vital Signs Temp Pulse Resp BP Pulse Ox 01/25/20 16:55 97.7 F 88 17 142/85 H 95 - My Orders Last 24 Hours: My Active Orders 01/25/20 17:01 CULTURE URINE [RM] Stat 01/25/20 19:35 HEPATITIS PANEL (4) [REF] Stat - Assessment/Plan Last 24 Hours: My Active Orders 01/25/20 17:01 CULTURE URINE [RM] Stat 01/25/20 19:35 HEPATITIS PANEL (4) [REF] Stat
[2020-01-25] MEDS ORDERED: Ciprofloxacin 500 MG Tab PO ONE (17:44)
[2020-01-25 17:47] LABS: BLOOD UREA NITROGEN,BUN 3 mg/dL (7.0-18.0); CHLORIDE,CL 100 mmol/L (98-107); GLUCOSE RANDOM 121 mg/dL (74-106); POTASSIUM,K 3.4 mmol/L (3.5-5.1); SODIUM,NA 136 mmol/L (136-148)
--- NOTE | 2020-01-25 19:48 | US ---
Limited abdominal ultrasound: Multiple real-time images of the upper right abdomen were obtained. Liver is diffusely echogenic. Liver is also generous in size. Gallbladder shows sludge. No biliary duct dilatation is seen. Gallbladder not well distended causing pseudo-thickening of the wall. Right kidney shows no hydronephrosis or mass. Right kidney length is 12.3 cm. Inferior vena cava as well as mid and distal aorta and pancreas not well seen due to bowel gas. Impression: 1. Bowel gas obscuring midline structures. 2. Echogenic liver most likely due to fatty infiltration. Liver is also generous in size. 3. Small amount of sludge within the gallbladder with no biliary duct dilatation. Pseudo-wall thickening is noted within the gallbladder due to lack of good distention. Diagnostic code #3 This report was dictated in MDT
== END 2020-01-25 20:15 | disposition home or self-care (01) ==
LOC: MW.ED 16:14
DX: N39.0 Urinary tract infection, site not specified (principal); E80.6 Other disorders of bilirubin metabolism; R11.2 Nausea with vomiting, unspecified
CPT/HCPCS: 36415; 76705; 80053; 80074; 81001; 83690; 85025; 87086; 96361; 96374; 99284; A9270; J2405; J7030; 99283

== ENCOUNTER 2020-03-24 08:00 | Emergency (ER) | payer BC, OTHER ==
[2020-03-24] MEDS ORDERED: Proparacaine 0.5% Ophth Soln 15 ML Bottle EYERT STA (08:25)
--- NOTE | 2020-03-24 08:32 | EDM.PDOC ---
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 He got sand in his eye yesterday. He wears contacts. He flushed it out real well and it is more irritated today. He has pain in the right eye. It feels like the foreign body still there. He has had a corneal abrasion before and it feels like that also. It is moderately intense and nothing makes it better or worse. Visual acuity noted. The patient does not have glasses and is nearsighted. He said it will take 2 weeks before he can get glasses and usually wears contacts. History of present illness: [] Review of systems: As per history of present illness and below otherwise all systems reviewed and negative. Past medical history: As per history of present illness and as reviewed below otherwise noncontributory. Surgical history: As per history of present illness and as reviewed below otherwise noncontributory. Social history: No reported history of drug or alcohol abuse. Family history: As per history of present illness and as reviewed below otherwise noncontributory. Physical exam: Constitutional - well developed, well-nourished and in no acute distress HEENT - normocephalic, no evidence of trauma - external nose and mouth normal - no mass in neck and no JVD - mucosae moist EYES - full EOM, PERRL, no icterus -entire injected in the right eye Anterior chamber-clear Lid eversion-for foreign body. Irrigated fluorescein exam-no foreign body, abrasion at 630 in the lower corneal field Respiratory - no respiratory distress, equal bilateral expansion Musculoskeletal no gross deformity of long bones or joints - no tenderness, swelling or edema Neurologic - Alert and oriented times four - CN II-XII grossly intact - motor sensory and coordination symmetrically normal Psychiatric - appropriate mood and affect with normal thought content Hematologic - No petechiae or purpura - mucosa appropriate color and sclera not pale - normal nail bed color and refill Integument - no rash or evidence of trauma - normal turgor Diagnostics: [] Therapeutics: [] Impression: [] Plan: [] Definitive disposition and diagnosis as appropriate pending reevaluation and review of above. - Related Data Allergies Allergy/AdvReac Type Severity Reaction Status Date / Time No Known Allergies Allergy Verified 03/24/20 08:17 Home Meds: Home Meds Sulfacetamide [Bleph-10 Ophth Soln] 1 drop EYERT Q6H 5 Days #1 bottle 03/24/20 [Rx] Past Medical History - Past Health History Medical/Surgical History: Denies Medical/Surgical History HEENT History: Reports: None Cardiovascular History: Reports: None Respiratory History: Reports: None Gastrointestinal History: Reports: None Genitourinary History: Reports: None Musculoskeletal History: Reports: None Other Musculoskeletal History: lower extremity pain from gout Neurological History: Reports: None Psychiatric History: Reports: None Endocrine/Metabolic History: Reports: None Hematologic History: Reports: None Immunologic History: Reports: None Oncologic (Cancer) History: Reports: None Dermatologic History: Reports: None - Infectious Disease History Infectious Disease History: Reports: Chicken Pox - Past Surgical History Head Surgeries/Procedures: Reports: None HEENT Surgical History: Reports: None Cardiovascular Surgical History: Reports: None Respiratory Surgical History: Reports: None GI Surgical History: Reports: None Male Surgical History: Reports: None Endocrine Surgical History: Reports: None Neurological Surgical History: Reports: None Musculoskeletal Surgical History: Reports: None Oncologic Surgical History: Reports: None Dermatological Surgical History: Reports: None Social & Family History - Family History Family Medical History: Noncontributory Cardiac: Reports: Hypertension - Caffeine Use Caffeine Use: Reports: Energy Drinks ED ROS GENERAL - Review of Systems Review Of Systems: Comprehensive ROS is negative, except as noted in HPI. ED EXAM GENERAL W FULL EYE - Physical Exam Exam: See Below Text/Narrative:: Physical exam as in the HPI Course - Vital Signs Last Recorded V/S: Last Vital Signs Temp 96.7 F L 03/24/20 08:13 Pulse 82 03/24/20 08:13 Resp 16 03/24/20 08:13 BP 148/91 H 03/24/20 08:13 Pulse Ox 99 03/24/20 08:13 - Orders/Labs/Meds Meds: Medications Discontinued Medications Generic Name Dose Route Start Last Admin Trade Name Freq PRN Reason Stop Dose Admin Proparacaine HCl 1 ml 03/24/20 08:25 03/24/20 08:36 Proparacaine 0.5% Ophth Soln EYERT 09/10/20 08:26 Not Given NOW STA Tetracaine HCl 1 ml 03/24/20 08:36 03/24/20 08:39 Tetracaine 0.5% Steri-Unit Gerda EYEBOTH 03/24/20 08:37 1 ml ASDIRECTED ONE Administration Tetracaine HCl Confirm 03/24/20 08:38 Tetracaine 0.5% Steri-Unit Gerda Administered 03/24/20 08:39 Dose 4 ml .ROUTE .STK-MED ONE Departure - Departure Time of Disposition: 08:59 Disposition: Home, Self-Care 01 Condition: Good Clinical Impression: Corneal abrasion - Discharge Information Prescriptions: Sulfacetamide [Bleph-10 Ophth Soln] 1 drop EYERT Q6H 5 Days #1 bottle Instructions: Corneal Abrasion Referrals: PCP,None [Primary Care Provider] - Franklin Paulino MD [Ordering Only Provider] - Forms: ED Department Discharge Additional Instructions: The following information is given to patients seen in the emergency department who are being discharged to home. This information is to outline your options for follow-up care. We provide all patients seen in our emergency department with a follow-up referral. The need for follow-up, as well as the timing and circumstances, are variable depending upon the specifics of your emergency department visit. If you don't have a primary care physician on staff, we will provide you with a referral. We always advise you to contact your personal physician following an emergency department visit to inform them of the circumstance of the visit and for follow-up with them and/or the need for any referrals to a consulting specialist. The emergency department will also refer you to a specialist when appropriate. This referral assures that you have the opportunity for follow-up care with a specialist. All of these measure are taken in an effort to provide you with optimal care, which includes your follow-up. Under all circumstances we always encourage you to contact your private physician who remains a resource for coordinating your care. When calling for follow-up care, please make the office aware that this follow-up is from your recent emergency room visit. If for any reason you are refused follow-up, please contact the [facility] Emergency Department at and asked to speak to the emergency department charge nurse. Sepsis Event Note (ED) - Evaluation Sepsis Screening Result: No Definite Risk - Focused Exam Vital Signs: Vital Signs Temp Pulse Resp BP Pulse Ox 03/24/20 08:13 96.7 F L 82 16 148/91 H 99
[2020-03-24] MEDS ORDERED: Tetracaine HCl/PF 0.5% 4 ML Bottle EYEBOTH ONE (08:36)
[2020-03-24] MEDS ORDERED: Tetracaine HCl/PF 0.5% 4 ML Bottle ONE (08:38)
== END 2020-03-24 09:35 | disposition home or self-care (01) ==
LOC: MW.ED 08:00
DX: S05.01XA Injury of conjunctiva and corneal abrasion without foreign body, right eye, initial encounter (principal); X58.XXXA Exposure to other specified factors, initial encounter
CPT/HCPCS: 99282; 99283

== ENCOUNTER 2020-07-10 17:31 | Emergency (ER) | payer OTHER ==
--- NOTE | 2020-07-10 17:53 | EDM.PDOC ---
ED HPI GENERAL MEDICAL PROBLEM - General Chief Complaint: Genitourinary Problem Stated Complaint: UTI Time Seen by Provider: 07/10/20 17:32 Source of Information: Reports: Patient History Limitations: Reports: No Limitations - History of Present Illness INITIAL COMMENTS - FREE TEXT/NARRATIVE: HISTORY AND PHYSICAL: History of present illness: Patient is a 39-year-old male who presents to the emergency room with complaints of dysuria, low back pain and frequency x 2 days. Patient states he was diagnosed with a bladder infection in January when he had similar symptoms, was treated with Cipro. He is concerned he has another bladder infection. Patient denies any fever, chills, headache, change in vision, syncope or near syncope. Denies any chest pain, shortness of breath or cough. Denies any abdominal pain, nausea, vomiting, diarrhea, or constipation. Has not noted any blood in urine or stool. Denies any concern for STI. Denies any penile drainage, lesions or sores. Patient has been eating and drinking appropriately. Review of systems: As per history of present illness and below otherwise all systems reviewed and negative. Past medical history: As per history of present illness and as reviewed below otherwise noncontributory. Surgical history: As per history of present illness and as reviewed below otherwise noncontributory. Social history: See social history for further information Family history: As per history of present illness and as reviewed below otherwise noncontributory. Physical exam: General: Well developed and well nourished. Alert and orientated x 3. Nontoxic in appearance and in no acute distress. Vital signs are stable and have been reviewed by me. Nursing notes were reviewed. HEENT: Atraumatic, normocephalic, pupils equal and reactive bilaterally, negative for conjunctival pallor or scleral icterus, mucous membranes moist, trachea midline. No drooling or trismus noted. No meningeal signs. No hot potato voice noted. Lungs: Clear to auscultation, breath sounds equal bilaterally, chest nontender. Normal work of breathing, no accessory muscles used. Heart: S1S2, regular rate and rhythm without overt murmur Abdomen: Soft, nondistended, nontender. Negative for masses or hepatosplenomegaly. Negative for costovertebral tenderness. Skin: Intact, warm, dry. No lesions or rashes noted. Hematologic: No petechiae or purpra. Mucosa appropriate color and normal nail bed color and refill. Extremities: Atraumatic, moves all extremities per self without difficulty or deficits, negative for cords or calf pain. Neurovascular unremarkable. Neuro: Awake, alert, oriented. Cranial nerves II through XII unremarkable. Cerebellum unremarkable. Motor and sensory unremarkable throughout. Exam nonfocal. Psychiatric: Mood and affect are appropriate. Normal thought process. Answering questions appropriately. Notes: Patient's urine is unremarkable with the exception of + ictotest. Reviewing the patient's last lab work he did have elevated bilirubin. He did have a hepatitis panel added on to his lab work in January which was negative. He is aware that he needs to follow-up on this but declines wanting any lab work done today. He states he is concerned that he may have an STD but does not want to have a urine test for this and would rather have prophylactic treatment. I will use Azithromycin instead of doxy due to his underlying liver issues that he yet has followed up for. I have talked with the patient about today's findings, in addition to providing specific details for plan of care. Strongly encouraged him to follow-up with his primary care provider for further lab work/liver test. Reassessment at the time of disposition demonstrates that the patient is in no acute distress. The patient is stable for discharge, counseling was provided and we discussed in great detail signs and symptoms that would prompt them to return to the Emergency Department. Medication, follow up and supportive care measures were reviewed and discussed. Voices understanding and is agreeable to plan of care. Denies any further questions or concerns at this time. Diagnostics: UA Therapeutics: Rocephin, Azithromycin Prescription: None Impression: Dysuria Plan: 1. Today your urine tests showed no evidence of bladder infection. 2. We encourage you to follow up with your primary care provider and/or recommended specialist in the next few days for re-evaluation and further care/management. 3. If your symptoms should worsen, new symptoms develop or any of the signs and symptoms we discussed should arise please return to the emergency room or call 911 (if needed). Definitive disposition and diagnosis as appropriate pending reevaluation and review of above. Right Flank Pain Score (Numeric/FACES): 5 - Related Data Allergies Allergy/AdvReac Type Severity Reaction Status Date / Time No Known Allergies Allergy Verified 07/10/20 17:45 Home Meds: Home Meds . [No Known Home Meds] 07/10/20 [History] Past Medical History - Past Health History Medical/Surgical History: Denies Medical/Surgical History HEENT History: Reports: None Cardiovascular History: Reports: None Respiratory History: Reports: None Gastrointestinal History: Reports: None Genitourinary History: Reports: UTI, Recurrent Musculoskeletal History: Reports: None Other Musculoskeletal History: lower extremity pain from gout Neurological History: Reports: None Psychiatric History: Reports: None Endocrine/Metabolic History: Reports: None Hematologic History: Reports: None Immunologic History: Reports: None Oncologic (Cancer) History: Reports: None Dermatologic History: Reports: None - Infectious Disease History Infectious Disease History: Reports: Chicken Pox - Past Surgical History Head Surgeries/Procedures: Reports: None HEENT Surgical History: Reports: None Cardiovascular Surgical History: Reports: None Respiratory Surgical History: Reports: None GI Surgical History: Reports: None Male Surgical History: Reports: None Endocrine Surgical History: Reports: None Neurological Surgical History: Reports: None Musculoskeletal Surgical History: Reports: None Oncologic Surgical History: Reports: None Dermatological Surgical History: Reports: None Social & Family History - Family History Family Medical History: No Pertinent Family History Cardiac: Reports: Hypertension - Tobacco Use Tobacco Use Status *Q: Never Tobacco User - Caffeine Use Caffeine Use: Reports: None - Recreational Drug Use Recreational Drug Use: No ED ROS GENERAL - Review of Systems Review Of Systems: Comprehensive ROS is negative, except as noted in HPI. ED EXAM, GI/ABD - Physical Exam Exam: See Below (See dictation) Course - Vital Signs Last Recorded V/S: Last Vital Signs Temp 97.5 F 07/10/20 17:43 Pulse 89 07/10/20 17:43 Resp 16 07/10/20 17:43 BP 154/93 H 07/10/20 17:43 Pulse Ox 97 07/10/20 17:43 - Orders/Labs/Meds Orders: Active Orders 24 hr Category Date Time Status CHLAMYDIA AND GONORRHEA BY TMA Stat Lab 07/10/20 18:07 Ordered Labs: Laboratory Tests 07/10/20 Range/Units 17:50 Urine Color DARK YELLOW Urine Appearance CLEAR Urine pH 7.0 (5.0-8.0) Ur Specific [place] 1.015 (1.001-1.035) Urine Protein NEGATIVE (NEGATIVE) mg/dL Urine Glucose (UA) NEGATIVE (NEGATIVE) mg/dL Urine Ketones NEGATIVE (NEGATIVE) mg/dL Urine Occult Blood NEGATIVE (NEGATIVE) Urine Nitrite NEGATIVE (NEGATIVE) Urine Bilirubin SMALL H (NEGATIVE) Urine Ictotest POSITIVE Urine Urobilinogen 0.2 (<2.0) EU/dL Ur Leukocyte Esterase NEGATIVE (NEGATIVE) Meds: Medications Discontinued Medications Generic Name Dose Route Start Last Admin Trade Name Sherri PRN Reason Stop Dose Admin Azithromycin 1,000 mg 07/10/20 18:08 Zithromax PO 07/10/20 18:09 NOW STA Ceftriaxone Sodium 500 mg/ 2 mls @ 2 mls/sec 07/10/20 18:08 Lidocaine HCl IM 07/10/20 18:09 ONETIME ONE Departure - Departure Time of Disposition: 18:07 Disposition: Home, Self-Care 01 Clinical Impression: Dysuria - Discharge Information Instructions: Dysuria Referrals: PCP,None [Primary Care Provider] - Forms: ED Department Discharge Additional Instructions: The following information is given to patients seen in the emergency department who are being discharged to home. This information is to outline your options for follow-up care. We provide all patients seen in our emergency department with a follow-up referral. The need for follow-up, as well as the timing and circumstances, are variable depending upon the specifics of your emergency department visit. If you don't have a primary care physician on staff, we will provide you with a referral. We always advise you to contact your personal physician following an emergency department visit to inform them of the circumstance of the visit and for follow-up with them and/or the need for any referrals to a consulting specialist. The emergency department will also refer you to a specialist when appropriate. This referral assures that you have the opportunity for follow-up care with a specialist. All of these measure are taken in an effort to provide you with optimal care, which includes your follow-up. Under all circumstances we always encourage you to contact your private physician who remains a resource for coordinating your care. When calling for follow-up care, please make the office aware that this follow-up is from your recent emergency room visit. If for any reason you are refused follow-up, please contact the [facility] Emergency Department at and asked to speak to the emergency department charge nurse. [facility] [address] [place] [id number] [facility] [address] [place] [address] Thank you for choosing the [facility] emergency department in [place] for your medical needs today. It was a pleasure caring for you. Today you were seen in the emergency department for urinary symptoms. 1. Today your urine tests showed no evidence of bladder infection. 2. We encourage you to follow up with your primary care provider and/or recommended specialist in the next few days for re-evaluation and further care/management. 3. If your symptoms should worsen, new symptoms develop or any of the signs and symptoms we discussed should arise please return to the emergency room or call 911 (if needed). Sepsis Event Note (ED) - Evaluation Sepsis Screening Result: No Definite Risk - Focused Exam Vital Signs: Vital Signs Temp Pulse Resp BP Pulse Ox 07/10/20 17:43 97.5 F 89 16 154/93 H 97 - My Orders Last 24 Hours: My Active Orders 07/10/20 18:07 CHLAMYDIA AND GONORRHEA BY TMA Stat - Assessment/Plan Last 24 Hours: My Active Orders 07/10/20 18:07 CHLAMYDIA AND GONORRHEA BY TMA Stat
[2020-07-10] MEDS ORDERED: Azithromycin 250 MG Tab PO STA (18:08)
[2020-07-10] MEDS ORDERED: cefTRIAXone 500 MG in Lidocaine 1% 2 ML IM ONE (18:08)
== END 2020-07-10 18:38 | disposition home or self-care (01) ==
LOC: MW.ED 17:31
DX: R30.0 Dysuria (principal); M54.5 Low back pain; R35.0 Frequency of micturition
CPT/HCPCS: 81003; 96372; 99283; A9270; J0696; J2001; 99282

== ENCOUNTER 2020-07-20 10:38 | Emergency (ER) | payer OTHER ==
--- NOTE | 2020-07-20 10:47 | EDM.PDOC ---
ED HPI GENERAL MEDICAL PROBLEM - General Chief Complaint: General Stated Complaint: COVID SYMPTOMS Time Seen by Provider: 07/20/20 10:44 Source of Information: Reports: Patient History Limitations: Reports: No Limitations - History of Present Illness INITIAL COMMENTS - FREE TEXT/NARRATIVE: HISTORY AND PHYSICAL: History of present illness: Patient is a 39-year-old male who presents to the emergency room with complaints of "COVID symptoms". Patient states he has generalized body aches, dry nonproductive cough, nausea, vomiting, generalized abdominal pain x 2 days. Upon evaluating the patient he does appear tremulous/shaky, I did further ask about his alcohol use and he states he had drank over the past several days and has abstained in the past 24 hours and does feel like this is "maybe affecting me". Patient denies any fever, chills, headache, change in vision, syncope or near syncope. Denies any chest pain, back pain, shortness of breath or hemoptysis. Denies any diarrhea, constipation or dysuria. Has not noted any blood in urine or stool. Patient has been eating and drinking appropriately. Review of systems: As per history of present illness and below otherwise all systems reviewed and negative. Past medical history: As per history of present illness and as reviewed below otherwise noncontributory. Surgical history: As per history of present illness and as reviewed below otherwise noncontributory. Social history: See social history for further information Family history: As per history of present illness and as reviewed below otherwise nonc ontributory. Physical exam: General: Well developed and well nourished 39 year old male. Alert and orientated x 3. Nontoxic in appearance and in no acute distress. Vital signs are stable and have been reviewed by me. Nursing notes were reviewed. HEENT: Atraumatic, normocephalic, pupils equal and reactive bilaterally, negative for conjunctival pallor or scleral icterus, mucous membranes moist, TMs normal bilaterally, throat clear, neck supple, nontender, trachea midline. No drooling or trismus noted. No meningeal signs. No hot potato voice noted. Lungs: Clear to auscultation, breath sounds equal bilaterally, chest nontender. Normal work of breathing, no accessory muscles used. Heart: S1S2, regular rate and rhythm without overt murmur Abdomen: Soft, nondistended, mild diffuse tenderness. No rebound tenderness nor dean sign. Negative for masses or ascites. Negative for costovertebral tenderness. Skin: Slightly diaphoretic. Skin is otherwise intact, warm, dry. No lesions or rashes noted. Hematologic: No petechiae or purpra. Mucosa appropriate color and normal nail bed color and refill. Extremities: Atraumatic, moves all extremities per self without difficulty or deficits, negative for cords or calf pain. Neurovascular unremarkable. Neuro: Awake, alert, oriented. Cranial nerves II through XII unremarkable. Cerebellum unremarkable. Motor and sensory unremarkable throughout. Exam nonfocal. Psychiatric: Mood and affect are appropriate. Normal thought process. Answering questions appropriately. Notes: CIWA: 8. Will give patient some ativan and fluids. He is agreeable to basic lab work. Chest x-ray is unremarkable. Lab work shows that his total bili 2.0, AST elevated at 111, normal ALT at 58. Reviewing the patient's previous lab work he has had an elevated bili, AST/ALT and did have hepatitis panel added on which is negative. CT shows the liver is enlarged containing too numerous to count masses. There also appears to be a background of cirrhosis. The main differential considerations are a multifocal hepatoma in the setting of cirrhosis versus metastatic disease to the liver. I see no obvious primary source of disease below the diaphragm. Trace free fluid likely related to the liver. Patient states he feels improved. CIWA: 2. I have talked with the patient about today's findings, in addition to providing specific details for plan of care. I have seen this patient a few times in the past, he has been noncompliant with follow up; I have stressed the importance of following up on his CT results. I have given him resources/follow up names and information. Reassessment at the time of disposition demonstrates that the patient is in no acute distress. Reviewed case verbally with Dr Dubon; agrees with plan of care. Patient is requesting discharge and note reporting he can return to work tomorrow. The patient is stable for discharge, counseling was provided and we discussed in great detail signs and symptoms that would prompt them to [facility]. Medication, follow up and supportive care measures were reviewed and discussed. Voices understanding and is agreeable to plan of care. Denies any further questions or concerns at this time. Diagnostics: CBC, CMP, Lipase, COVID/Influenza, UA, CT abd/pelvis Therapeutics: IV fluids, Ativan Prescription: Zofran (#8) Impression: Liver masses Alcohol withdrawl Plan: 1. Today your CT shows multiple liver masses, which it is imperative that you follow up with your primary care provider or directly with GI specialist. PLEASE ARRANGE THIS IMMEDIATELY. 2. Avoid alcohol and NSAIDs (ibuprofen, naproxen, etc...) You may use the Zofran as needed for nausea management. Please make sure you are drinking plenty of fluids to prevent dehydration. 3. If your symptoms should worsen, new symptoms develop or any of the signs and symptoms we discussed should arise please return to the emergency room or call 911 (if needed). Definitive disposition and diagnosis as appropriate pending reevaluation and review of above. - Related Data Allergies Allergy/AdvReac Type Severity Reaction Status Date / Time No Known Allergies Allergy Verified 07/20/20 10:50 Home Meds: Home Meds Ondansetron [Zofran ODT] 4 mg PO Q6H PRN #8 tab.dis 07/20/20 [Rx] Past Medical History - Past Health History Medical/Surgical History: Denies Medical/Surgical History HEENT History: Reports: None Cardiovascular History: Reports: None Respiratory History: Reports: None Gastrointestinal History: Reports: None Genitourinary History: Reports: UTI, Recurrent Musculoskeletal History: Reports: None Other Musculoskeletal History: lower extremity pain from gout Neurological History: Reports: None Psychiatric History: Reports: None Endocrine/Metabolic History: Reports: None Hematologic History: Reports: None Immunologic History: Reports: None Oncologic (Cancer) History: Reports: None Dermatologic History: Reports: None - Infectious Disease History Infectious Disease History: Reports: Chicken Pox - Past Surgical History Head Surgeries/Procedures: Reports: None HEENT Surgical History: Reports: None Cardiovascular Surgical History: Reports: None Respiratory Surgical History: Reports: None GI Surgical History: Reports: None Male Surgical History: Reports: None Endocrine Surgical History: Reports: None Neurological Surgical History: Reports: None Musculoskeletal Surgical History: Reports: None Oncologic Surgical History: Reports: None Dermatological Surgical History: Reports: None Social & Family History - Family History Family Medical History: No Pertinent Family History Cardiac: Reports: Hypertension - Caffeine Use Caffeine Use: Reports: None ED ROS GENERAL - Review of Systems Review Of Systems: Comprehensive ROS is negative, except as noted in HPI. ED EXAM, GENERAL - Physical Exam Exam: See Below (See dictation) Course - Vital Signs Last Recorded V/S: Last Vital Signs Temp 96.4 F L 07/20/20 10:50 Pulse 86 07/20/20 12:24 Resp 16 07/20/20 12:24 BP 166/97 H 07/20/20 12:24 Pulse Ox 98 07/20/20 12:24 - Orders/Labs/Meds Orders: Active Orders 24 hr Category Date Time Status EKG Documentation Completion [RC] STAT Care 07/20/20 11:04 Active Labs: Laboratory Tests 07/20/20 07/20/20 07/20/20 Range/Units 10:50 10:50 10:50 WBC 11.55 H (4.0-11.0) K/uL RBC 4.64 (4.50-5.90) M/uL Hgb 15.3 (13.0-17.0) g/dL Hct 45.0 (38.0-50.0) % MCV 97.0 (80.0-98.0) fL MCH 33.0 H (27.0-32.0) pg MCHC 34.0 (31.0-37.0) g/dL RDW Std Deviation 49.3 (28.0-62.0) fl RDW Coeff of Jannette 14 (11.0-15.0) % Plt Count 233 (150-400) K/uL MPV 9.50 (7.40-12.00) fL Neut % (Auto) 77.6 (48.0-80.0) % Lymph % (Auto) 14.5 L (16.0-40.0) % Reynolds % (Auto) 6.6 (0.0-15.0) % Eos % (Auto) 0.3 (0.0-7.0) % Baso % (Auto) 1.0 (0.0-1.5) % Neut # (Auto) 9.0 H (1.4-5.7) K/uL Lymph # (Auto) 1.7 (0.6-2.4) K/uL Reynolds # (Auto) 0.8 (0.0-0.8) K/uL Eos # (Auto) 0.0 (0.0-0.7) K/uL Baso # (Auto) 0.1 (0.0-0.1) K/uL Nucleated RBC % 0.0 /100WBC Nucleated RBCs # 0 K/uL INR Sodium 139 (136-148) mmol/L Potassium 3.5 (3.5-5.1) mmol/L Chloride 99 (98-107) mmol/L Carbon Dioxide 25.4 (21.0-32.0) mmol/L BUN 4 L (7.0-18.0) mg/dL Creatinine 0.8 (0.8-1.3) mg/dL Est Cr Clr Drug Dosing 126.74 mL/min Estimated GFR (MDRD) > 60.0 ml/min Glucose 115 H (74-106) mg/dL Calcium 9.2 (8.5-10.1) mg/dL Total Bilirubin 2.0 H (0.2-1.0) mg/dL AST 111 H (15-37) IU/L ALT 58 (14-63) IU/L Alkaline Phosphatase 431 H (46-116) U/L Total Protein 10.2 H (6.4-8.2) g/dL Albumin 3.8 (3.4-5.0) g/dL Globulin 6.4 H (2.6-4.0) g/dL Albumin/Globulin Ratio 0.6 L (0.9-1.6) Lipase 102 (73-393) U/L Urine Color Urine Appearance Urine pH (5.0-8.0) Ur Specific Acton (1.001-1.035) Urine Protein (NEGATIVE) mg/dL Urine Glucose (UA) (NEGATIVE) mg/dL Urine Ketones (NEGATIVE) mg/dL Urine Occult Blood (NEGATIVE) Urine Nitrite (NEGATIVE) Urine Bilirubin (NEGATIVE) Urine Urobilinogen (<2.0) EU/dL Ur Leukocyte Esterase (NEGATIVE) Ethyl Alcohol mg/dL Influenza Type A RNA NEGATIVE (NEGATIVE) Influenza Type B RNA NEGATIVE (NEGATIVE) SARS-CoV-2 RNA (KIRK) NEGATIVE (NEGATIVE) 07/20/20 07/20/20 07/20/20 Range/Units 10:50 10:50 12:17 WBC (4.0-11.0) K/uL RBC (4.50-5.90) M/uL Hgb (13.0-17.0) g/dL Hct (38.0-50.0) % MCV (80.0-98.0) fL MCH (27.0-32.0) pg MCHC (31.0-37.0) g/dL RDW Std Deviation (28.0-62.0) fl RDW Coeff of Jannette (11.0-15.0) % Plt Count (150-400) K/uL MPV (7.40-12.00) fL Neut % (Auto) (48.0-80.0) % Lymph % (Auto) (16.0-40.0) % Reynolds % (Auto) (0.0-15.0) % Eos % (Auto) (0.0-7.0) % Baso % (Auto) (0.0-1.5) % Neut # (Auto) (1.4-5.7) K/uL Lymph # (Auto) (0.6-2.4) K/uL Reynolds # (Auto) (0.0-0.8) K/uL Eos # (Auto) (0.0-0.7) K/uL Baso # (Auto) (0.0-0.1) K/uL Nucleated RBC % /100WBC Nucleated RBCs # K/uL INR 1.65 Sodium (136-148) mmol/L Potassium (3.5-5.1) mmol/L Chloride (98-107) mmol/L Carbon Dioxide (21.0-32.0) mmol/L BUN (7.0-18.0) mg/dL Creatinine (0.8-1.3) mg/dL Est Cr Clr Drug Dosing mL/min Estimated GFR (MDRD) ml/min Glucose (74-106) mg/dL Calcium (8.5-10.1) mg/dL Total Bilirubin (0.2-1.0) mg/dL AST (15-37) IU/L ALT (14-63) IU/L Alkaline Phosphatase (46-116) U/L Total Protein (6.4-8.2) g/dL Albumin (3.4-5.0) g/dL Globulin (2.6-4.0) g/dL Albumin/Globulin Ratio (0.9-1.6) Lipase (73-393) U/L Urine Color YELLOW Urine Appearance CLEAR Urine pH 7.5 (5.0-8.0) Ur Specific Acton 1.010 (1.001-1.035) Urine Protein NEGATIVE (NEGATIVE) mg/dL Urine Glucose (UA) NEGATIVE (NEGATIVE) mg/dL Urine Ketones NEGATIVE (NEGATIVE) mg/dL Urine Occult Blood NEGATIVE (NEGATIVE) Urine Nitrite NEGATIVE (NEGATIVE) Urine Bilirubin NEGATIVE (NEGATIVE) Urine Urobilinogen 1.0 (<2.0) EU/dL Ur Leukocyte Esterase NEGATIVE (NEGATIVE) Ethyl Alcohol 5 mg/dL Influenza Type A RNA (NEGATIVE) Influenza Type B RNA (NEGATIVE) SARS-CoV-2 RNA (KIRK) (NEGATIVE) Meds: Medications Discontinued Medications Generic Name Dose Route Start Last Admin Trade Name Freq PRN Reason Stop Dose Admin Sodium Chloride 1,000 mls @ 999 mls/hr 07/20/20 10:50 07/20/20 11:04 Normal Saline IV 07/20/20 11:50 999 mls/hr STAT ONE Administration Iopamidol 100 ml 07/20/20 12:11 07/20/20 12:25 Isovue Multipack-370 (76%) IVPUSH 07/20/20 12:12 100 ml ONETIME STA Administration Lorazepam 1 mg 07/20/20 10:51 07/20/20 11:04 Ativan IVPUSH 07/20/20 10:52 1 mg ONETIME ONE Administration Departure - Departure Time of Disposition: 13:10 Disposition: Home, Self-Care 01 Clinical Impression: Liver masses Alcohol withdrawal Qualifiers: Complication of substance-induced condition: uncomplicated Qualified Code(s): F10.230 - Alcohol dependence with withdrawal, uncomplicated - Discharge Information Prescriptions: Ondansetron [Zofran ODT] 4 mg PO Q6H PRN #8 tab.dis PRN Reason: Nausea Instructions: Alcohol Withdrawal Syndrome, [id number] Referrals: PCP,None [Primary Care Provider] - Forms: ED Department Discharge Additional Instructions: The following information is given to patients seen in the emergency department who are being discharged to home. This information is to outline your options f or follow-up care. We provide all patients seen in our emergency department with a follow-up referral. The need for follow-up, as well as the timing and circumstances, are variable depending upon the specifics of your emergency department visit. If you don't have a primary care physician on staff, we will provide you with a referral. We always advise you to contact your personal physician following an emergency department visit to inform them of the circumstance of the visit and for follow-up with them and/or the need for any referrals to a consulting specialist. The emergency department will also refer you to a specialist when appropriate. This referral assures that you have the opportunity for follow-up care with a specialist. All of these measure are taken in an effort to provide you with optimal care, which includes your follow-up. Under all circumstances we always encourage you to contact your private physician who remains a resource for coordinating your care. When calling for follow-up care, please make the office aware that this follow-up is from your recent emergency room visit. If for any reason you are refused follow-up, please contact the [facility] Emergency Department at and asked to speak to the emergency department charge nurse. [facility] [address] [place] [id number] [facility]: GI Dr Suasnna Matt [address] [place] [address] Thank you for choosing the [facility] emergency department in [place] for your medical needs today. It was a pleasure caring for you. Today you were seen in the emergency department for nausea, vomiting and abdominal pain. 1. Today your CT shows multiple liver masses, which it is imperative that you follow up with your primary care provider or directly with GI specialist. PLEASE ARRANGE THIS IMMEDIATELY. 2. Avoid alcohol and NSAIDs (ibuprofen, naproxen, etc...) You may use the Zofran as needed for nausea management. Please make sure you are drinking plenty of fluids to prevent dehydration. 3. If your symptoms should worsen, new symptoms develop or any of the signs and symptoms we discussed should arise please return to the emergency room or call 911 (if needed). Sepsis Event Note (ED) - Focused Exam Vital Signs: Vital Signs Temp Pulse Resp BP Pulse Ox 07/20/20 12:24 86 16 166/97 H 98 07/20/20 10:50 96.4 F L 82 18 141/77 H 97 - My Orders Last 24 Hours: My Active Orders 07/20/20 11:04 EKG Documentation Completion [RC] STAT - Assessment/Plan Last 24 Hours: My Active Orders 07/20/20 11:04 EKG Documentation Completion [RC] STAT
[2020-07-20] MEDS ORDERED: Sodium Chloride 0.9% 1,000 ML IV ONE (10:50)
[2020-07-20] MEDS ORDERED: LORazepam 2 MG/ML SDV IVPUSH ONE (10:51)
--- NOTE | 2020-07-20 11:21 | PCM.SN.2 ---
- Free Text/Narrative Note: EKG Time 1110am Rate 78 NSR no DANIEL
--- NOTE | 2020-07-20 11:30 | CR ---
INDICATION: Pain and dyspnea COMPARISON: Pain and dyspnea TECHNIQUE: A single view portable chest radiograph was obtained AP upright study FINDINGS: TUBES AND LINES: None. HEART AND MEDIASTINUM: The heart size is normal. The mediastinal contour appears normal for patient age. LUNGS AND PLEURAL SPACES: The lungs appear normal.The pleural spaces are unremarkable. OSSEOUS STRUCTURES: Age-appropriate appearance. No acute focal finding. IMPRESSION: No evidence of active pulmonary disease. Dictated by Adams Huddleston MD @ Jul 20 2020 11:24AM Signed by Dr. Adams Huddleston @ Jul 20 2020 11:30AM
[2020-07-20 11:33] LABS: BLOOD UREA NITROGEN,BUN 4 mg/dL (7.0-18.0); CARBON DIOXIDE,CO2 25.4 mmol/L (21.0-32.0); CHLORIDE,CL 99 mmol/L (98-107); GLUCOSE RANDOM 115 mg/dL (74-106); LIPASE 102 U/L (73-393); POTASSIUM,K 3.5 mmol/L (3.5-5.1); SODIUM,NA 139 mmol/L (136-148)
[2020-07-20 11:47] LABS: CORONAVIRUS COVID-19 NAA NEGATIVE (NEGATIVE); INFLUENZA A NAA NEGATIVE (NEGATIVE); INFLUENZA B NAA NEGATIVE (NEGATIVE)
[2020-07-20] MEDS ORDERED: Iopamidol 755 MG/ML 500 ML Multipack Bottle IVPUSH STA (12:11)
--- NOTE | 2020-07-20 12:45 | CT ---
INDICATION: Abdominal pain COMPARISON: None TECHNIQUE: CT examination of the abdomen and pelvis was performed following the uneventful intravenous administration of 100 cc of Isovue 370. Thin section axial images were obtained from the lung bases through the pubic symphysis. Oral contrast was not administered. Please note that all CT scans at this facility use dose modulation, iterative reconstruction, and/or weight-based dosing when appropriate to reduce radiation dose to as low as reasonably achievable. FINDINGS: LUNG BASES: The lung bases as visualized appear normal.The heart size is normal at the lung bases. LIVER/BILIARY SYSTEM:The liver is enlarged. There are findings suggesting a background of cirrhosis. There are numerous masses scattered throughout the liver. The 2 main differential considerations are a multifocal hepatoma in the setting of cirrhosis or metastatic disease usually from an intra-abdominal adenocarcinoma. I do not see a primary lesion on this study. There is cholelithiasis incidentally noted. No biliary ductal dilatation. ADRENALS: Normal KIDNEYS, URETERS and BLADDER:The kidneys appear normal. No visible mass, calculus or hydronephrosis. The ureters and bladder as visualized appear normal. SPLEEN:Normal appearance. PANCREAS: Appears normal. RETROPERITONEUM and MESENTERY: There is no mass, adenopathy or aortic aneurysm. GASTROINTESTINAL SYSTEM: There is no evidence of diverticulitis, colitis, mechanical obstruction, or appendicitis. The small bowel as visualized appears normal. PELVIS: No visible mass. Mildly prominent prostate. OSSEOUS STRUCTURES and ABDOMINAL WALL: No destructive process of bone. No significant anterior abdominal wall abnormality.No significant abdominal wall defect. OTHER: Mild free fluid presumably related to the liver IMPRESSION: 1. The liver is enlarged containing too numerous to count masses. There also appears to be a background of cirrhosis. The main differential considerations are a multifocal hepatoma in the setting of cirrhosis versus metastatic disease to the liver. I see no obvious primary source of disease below the diaphragm. 2. Trace free fluid likely related to the liver. 3. I discussed the above findings with Yuly Kumar at 12:40 p.m. on June 19, [address] note that all [address] scans at this facility use dose modulation, iterative reconstruction, and/or weight-based dosing when appropriate to reduce radiation dose to as low as reasonably achievable. Dictated by Adams Huddleston MD @ Jul 20 2020 12:36PM Signed by Dr. Adams Huddleston @ Jul 20 2020 12:43PM
== END 2020-07-20 13:26 | disposition home or self-care (01) ==
LOC: MW.ED 10:38
DX: F10.230 Alcohol dependence with withdrawal, uncomplicated (principal); R16.0 Hepatomegaly, not elsewhere classified; Z20.822 Contact with and (suspected) exposure to COVID-19
CPT/HCPCS: 0240U; 36415; 71045; 74177; 80053; 80179; 81003; 83690; 85025; 85610; 93005; 96374; 99285; J2060; J7030; Q9967

== ENCOUNTER 2020-10-19 11:42 | Emergency (ER) | payer OTHER ==
[2020-10-19] MEDS ORDERED: Sodium Chloride 0.9% 10 ML Syringe FLUSH PRN (12:11)
[2020-10-19] MEDS ORDERED: Sodium Chloride 0.9% 2.5 ML Syringe FLUSH PRN (12:11)
--- NOTE | 2020-10-19 12:14 | EDM.PDOC ---
ED HPI GENERAL MEDICAL PROBLEM - General Chief Complaint: Respiratory Problem Stated Complaint: BLOATING SHORT OF BREATH Time Seen by Provider: 10/19/20 11:50 Source of Information: Reports: Patient History Limitations: Reports: No Limitations - History of Present Illness INITIAL COMMENTS - FREE TEXT/NARRATIVE: 40-year-old male past medical history alcoholism, cirrhosis presents for worsening jaundice, scleral icterus, abdominal distention, chills, shortness of breath. Patient notes that he came to the emergency department in July [address] scan of his abdomen and pelvis which revealed evidence of enlarged liver with several masses in the liver. He has not followed up with anybody to have this evaluated. He does note that he has quit drinking alcohol for the last 2 months and was hoping the symptoms would go away but they do seem to be worsening. He denies any fevers. He notes nausea at times but denies vomiting. He notes that over the last couple of weeks his abdomen has become very distended and is uncomfortable and causing him shortness of breath. abdomen Pain Score (Numeric/FACES): 6 - Related Data Allergies Allergy/AdvReac Type Severity Reaction Status Date / Time No Known Allergies Allergy Verified 10/19/20 11:56 Home Meds: Home Meds Lactulose 20 gm PO TID 30 Days #473 ml 10/19/20 [Rx] Past Medical History - Past Health History Medical/Surgical History: Denies Medical/Surgical History HEENT History: Reports: None Cardiovascular History: Reports: None Respiratory History: Reports: None Gastrointestinal History: Reports: None, Other (See Below) Other Gastrointestinal History: Mass on Liver Genitourinary History: Reports: UTI, Recurrent Musculoskeletal History: Reports: None Other Musculoskeletal History: lower extremity pain from gout Neurological History: Reports: None Psychiatric History: Reports: None Endocrine/Metabolic History: Reports: None Hematologic History: Reports: None Immunologic History: Reports: None Oncologic (Cancer) History: Reports: None Dermatologic History: Reports: None - Infectious Disease History Infectious Disease History: Reports: Chicken Pox - Past Surgical History Head Surgeries/Procedures: Reports: None HEENT Surgical History: Reports: None Cardiovascular Surgical History: Reports: None Respiratory Surgical History: Reports: None GI Surgical History: Reports: None Male Surgical History: Reports: None Endocrine Surgical History: Reports: None Neurological Surgical History: Reports: None Musculoskeletal Surgical History: Reports: None Oncologic Surgical History: Reports: None Dermatological Surgical History: Reports: None Social & Family History - Family History Family Medical History: No Pertinent Family History Cardiac: Reports: Hypertension - Tobacco Use Tobacco Use Status *Q: Never Tobacco User - Caffeine Use Caffeine Use: Reports: Coffee - Recreational Drug Use Recreational Drug Use: No ED ROS GENERAL - Review of Systems Review Of Systems: Comprehensive ROS is negative, except as noted in HPI. ED EXAM, GENERAL - Physical Exam Exam: See Below Exam Limited By: No Limitations General Appearance: Alert, WD/WN, No Apparent Distress Eye Exam: Bilateral Eye: Other (Scleral icterus) Throat/Mouth: Normal Voice, No Airway Compromise Head: Atraumatic, Normocephalic Neck: Normal Inspection Respiratory/Chest: No Respiratory Distress, Lungs Clear, Normal Breath Sounds, No Accessory Muscle Use Cardiovascular: Normal Peripheral Pulses, Tachycardia GI/Abdominal: Other (Distended, positive fluid wave, no tenderness to palpation) Extremities: Normal Inspection, Other (No edema) Neurological: Alert Psychiatric: Normal Affect, Normal Mood Skin Exam: Warm, Dry, Intact, Normal Color ED RESPIRATORY PROCEDURES - Additional/Other Procedure(s) Other (Free Text) Procedure(s): The patient had a significant amount of ascites in the abdominal cavity necessitating paracentesis. The patient was placed in a semi-Fowlers position. A time out was undertaken to ensure that this is the correct patient and the correct procedure for this patient. Ultrasound was used to identify a safe area where bowel was limited and fluid was plentiful. A paracentesis kit was opened. The patients left lower abdomen was prepped and cleansed in the usual sterile fashion. Lidocaine provided in the kit was used to anesthetize the skin over the established safe area. A 16 gauge blunt tip needle with trocar was utilized to enter the peritoneal space using a Z-tract technique. A total of 2.5 L of serous fluid was removed from the peritoneal cavity and 30mL was sent for laboratory evaluation. The patient had no evidence of hypotension post procedurally. The catheter is removed and a dry sterile dressing was placed. The patient tolerated this procedure quite well and there were no complications. #1 Interpretation EKG Date: 10/19/20 Time: 12:37 Rhythm: NSR Rate (Beats/Min): 111 Belen: Normal P-Wave: Present QRS: Normal ST-T: Normal QT: Prolonged (481) WI/PQ Interval: 131 EKG Interpretation Comments: sinus tach, TWI lead III Course - Vital Signs Last Recorded V/S: Last Vital Signs Temp 98.8 F 10/19/20 11:52 Pulse 118 H 10/19/20 11:52 Resp 20 10/19/20 11:52 BP 156/90 H 10/19/20 11:52 Pulse Ox 99 10/19/20 11:52 - Orders/Labs/Meds Orders: Active Orders 24 hr Category Date Time Status EKG Documentation Completion [RC] STAT Care 10/19/20 12:11 Active CORONAVIRUS COVID-19 KIRK [MOLEC] Stat Lab 10/19/20 12:11 Ordered CULTURE BODY FLUID + SMEAR [RM] Stat Lab 10/19/20 14:44 Received HEPATITIS PANEL (4) [REF] Stat Lab 10/19/20 12:24 Received LACTATE DEHYDROGENASE,BODY FL [BF] Stat Lab 10/19/20 14:44 Received Sodium Chloride 0.9% [Saline Flush] Med 10/19/20 12:11 Active 10 ml FLUSH ASDIRECTED PRN Sodium Chloride 0.9% [Saline Flush] Med 10/19/20 12:11 Active 2.5 ml FLUSH ASDIRECTED PRN Saline Lock Insert [OM.PC] Stat Oth 10/19/20 12:11 Ordered Medication Orders Sodium Chloride (Sodium Chloride 0.9% 10 Ml Syringe) 10 ml FLUSH ASDIRECTED PRN PRN Reason: Keep Vein Open Sodium Chloride (Sodium Chloride 0.9% 2.5 Ml Syringe) 2.5 ml FLUSH ASDIRECTED PRN PRN Reason: Keep Vein Open Last Admin: 10/19/20 15:12 Dose: 2.5 ml Documented by: TIA Labs: Laboratory Tests 10/19/20 10/19/20 10/19/20 Range/Units 12:24 12:24 12:24 WBC 17.58 H (4.0-11.0) K/uL RBC 3.22 L (4.50-5.90) M/uL Hgb 11.5 L (13.0-17.0) g/dL Hct 33.2 L (38.0-50.0) % MCV 103.1 H (80.0-98.0) fL MCH 35.7 H (27.0-32.0) pg MCHC 34.6 (31.0-37.0) g/dL RDW Std Deviation 52.3 (28.0-62.0) fl RDW Coeff of Jannette 14 (11.0-15.0) % Plt Count 213 (150-400) K/uL MPV 9.60 (7.40-12.00) fL Neut % (Auto) 82.2 H (48.0-80.0) % Lymph % (Auto) 9.1 L (16.0-40.0) % [place] % (Auto) 6.8 (0.0-15.0) % Eos % (Auto) 1.3 (0.0-7.0) % Baso % (Auto) 0.6 (0.0-1.5) % Neut # (Auto) 14.5 H (1.4-5.7) K/uL Lymph # (Auto) 1.6 (0.6-2.4) K/uL [place] # (Auto) 1.2 H (0.0-0.8) K/uL Eos # (Auto) 0.2 (0.0-0.7) K/uL Baso # (Auto) 0.1 (0.0-0.1) K/uL Nucleated RBC % 0.0 /100WBC Nucleated RBCs # 0 K/uL INR 2.06 APTT 31.7 H (18.6-31.3) SEC Lactate 1.9 (0.20-2.00) mmol/L Sodium (136-148) mmol/L Potassium (3.5-5.1) mmol/L Chloride (98-107) mmol/L Carbon Dioxide (21.0-32.0) mmol/L BUN (7.0-18.0) mg/dL Creatinine (0.8-1.3) mg/dL Est Cr Clr Drug Dosing mL/min Estimated GFR (MDRD) ml/min Glucose (74-106) mg/dL Calcium (8.5-10.1) mg/dL Magnesium (1.8-2.4) mg/dL Total Bilirubin (0.2-1.0) mg/dL AST (15-37) IU/L ALT (14-63) IU/L Alkaline Phosphatase (46-116) U/L Ammonia (19-54) ug/dL Total Protein (6.4-8.2) g/dL Albumin (3.4-5.0) g/dL Globulin (2.6-4.0) g/dL Albumin/Globulin Ratio (0.9-1.6) Lipase (73-393) U/L Fluid Type Fluid Color Fluid Appearance Fluid WBC /uL Fluid RBC /uL Fluid Mononuclear Cell % Fl Polymorphonucl Cell % Fluid Glucose mg/dL Fluid Total Protein g/dL Fluid Albumin g/dL 10/19/20 10/19/20 10/19/20 Range/Units 12:24 13:10 14:44 WBC (4.0-11.0) K/uL RBC (4.50-5.90) M/uL Hgb (13.0-17.0) g/dL Hct (38.0-50.0) % MCV (80.0-98.0) fL MCH (27.0-32.0) pg MCHC (31.0-37.0) g/dL RDW Std Deviation (28.0-62.0) fl RDW Coeff of Jannette (11.0-15.0) % Plt Count (150-400) K/uL MPV (7.40-12.00) fL Neut % (Auto) (48.0-80.0) % Lymph % (Auto) (16.0-40.0) % [place] % (Auto) (0.0-15.0) % Eos % (Auto) (0.0-7.0) % Baso % (Auto) (0.0-1.5) % Neut # (Auto) (1.4-5.7) K/uL Lymph # (Auto) (0.6-2.4) K/uL [place] # (Auto) (0.0-0.8) K/uL Eos # (Auto) (0.0-0.7) K/uL Baso # (Auto) (0.0-0.1) K/uL Nucleated RBC % /100WBC Nucleated RBCs # K/uL INR APTT (18.6-31.3) SEC Lactate (0.20-2.00) mmol/L Sodium 134 L (136-148) mmol/L Potassium 3.5 (3.5-5.1) mmol/L Chloride 100 (98-107) mmol/L Carbon Dioxide 23.6 (21.0-32.0) mmol/L BUN 9 (7.0-18.0) mg/dL Creatinine 0.6 L (0.8-1.3) mg/dL Est Cr Clr Drug Dosing 167.29 mL/min Estimated GFR (MDRD) > 60.0 ml/min Glucose 106 (74-106) mg/dL Calcium 8.6 (8.5-10.1) mg/dL Magnesium 1.2 L (1.8-2.4) mg/dL Total Bilirubin 16.3 H (0.2-1.0) mg/dL AST 169 H (15-37) IU/L ALT 83 H (14-63) IU/L Alkaline Phosphatase 512 H (46-116) U/L Ammonia 68 H (19-54) ug/dL Total Protein 8.7 H (6.4-8.2) g/dL Albumin 2.3 L (3.4-5.0) g/dL Globulin 6.4 H (2.6-4.0) g/dL Albumin/Globulin Ratio 0.4 L (0.9-1.6) Lipase 107 (73-393) U/L Fluid Type PER Fluid Color YELLOW Fluid Appearance CLEAR Fluid WBC 237 /uL Fluid RBC < 3000 /uL Fluid Mononuclear Cell 90 % Fl Polymorphonucl Cell 10 % Fluid Glucose 109 mg/dL Fluid Total Protein 2.1 g/dL Fluid Albumin 0.6 g/dL Meds: Medications Generic Name Dose Route Start Last Admin Trade Name Freq PRN Reason Stop Dose Admin Sodium Chloride 10 ml 10/19/20 12:11 Sodium Chloride 0.9% 10 Ml Syringe FLUSH ASDIRECTED PRN Keep Vein Open Sodium Chloride 2.5 ml 10/19/20 12:11 10/19/20 15:12 Sodium Chloride 0.9% 2.5 Ml Syringe FLUSH 2.5 ml ASDIRECTED PRN Administration Keep Vein Open Discontinued Medications Generic Name Dose Route Start Last Admin Trade Name Freq PRN Reason Stop Dose Admin Magnesium Sulfate 2 gm/ Premix 50 mls @ 50 mls/hr 10/19/20 13:24 10/19/20 15:12 IV 10/19/20 14:23 50 mls/hr ONETIME ONE Administration Iopamidol 100 ml 10/19/20 13:34 10/19/20 13:36 Iopamidol 755 Mg/Ml 500 Ml Multipack Bottle IVPUSH 10/19/20 13:35 100 ml ONETIME STA Administration - Re-Assessments/Exams Free Text/Narrative Re-Assessment/Exam: 10/19/20 12:16 We will get labs and CT scan of the abdomen pelvis. Will do paracentesis procedure. 10/19/20 13:54 Labs remarkable for leukocytosis, significant transaminitis, hyperbilirubinemia, hyperammonemia, elevated coags. We will follow-up CT imaging of the abdomen and pelvis. Will perform paracentesis. 10/19/20 15:18 CT is largely unchanged from prior. We will follow up peritoneal fluid results and dispo 10/19/20 16:13 No evidence of SBP. Had a long discussion with patient and recommend transfer to my not for further work-up of worsening liver failure. Patient notes that he has to school-aged children at home and that he is unable to go to [facility]. I explained the risks of leaving AGAINST MEDICAL ADVICE including , permanent disability, worsening liver failure. Patient understands these risks but [facility] I told him that we are welcome to see him in the emergency department either later tonight or anytime if he changes his mind or if his condition worsens. He understands and states that he will probably come back tomorrow morning after making arrangement for childcare. He is alert and oriented, displays understanding of his medical condition. Departure - Departure Time of Disposition: 16:14 Disposition: Home, Self-Care 01 Condition: Serious Clinical Impression: Transaminitis, Hyperbilirubinemia - Discharge Information Prescriptions: Lactulose 20 gm PO TID 30 Days #473 ml Instructions: Alcoholic Liver Disease, [id number] Referrals: PCP,None [Primary Care Provider] - Forms: ED Department Discharge Additional Instructions: Your labs show evidence of liver failure. You are leaving AGAINST MEDICAL ADVICE. Despite this decision today you are always welcome to come back to the emergency department tonight, tomorrow, or whenever you need us and we can help arrange transfer of care to a larger medical facility with hepatology specialist. The following information is given to patients seen in the emergency department who are being discharged to home. This information is to outline your options for follow-up care. We provide all patients seen in our emergency department with a follow-up referral. The need for follow-up, as well as the timing and circumstances, are variable depending upon the specifics of your emergency department visit. If you don't have a primary care physician on staff, we will provide you with a referral. We always advise you to contact your personal physician following an emergency department visit to inform them of the circumstance of the visit and for follow-up with them and/or the need for any referrals to a consulting specialist. The emergency department will also refer you to a specialist when appropriate. This referral assures that you have the opportunity for follow-up care with a specialist. All of these measure are taken in an effort to provide you with optimal care, which includes your follow-up. Under all circumstances we always encourage you to contact your private physician who remains a resource for coordinating your care. When calling for follow-up care, please make the office aware that this follow-up is from your recent emergency room visit. If for any reason you are refused follow-up, please contact the [facility] Emergency Department at and asked to speak to the emergency department charge nurse. Please follow up with your primary care physician. If you do not have a primary care physician, see below: [facility] [address] [place] [id number] [facility] [address] [place] [id number] [facility] [address] [place] [id number] Sepsis Event Note (ED) - Evaluation Sepsis Screening Result: No Definite Risk - Focused Exam Vital Signs: Vital Signs Temp Pulse Resp BP Pulse Ox 10/19/20 11:52 98.8 F 118 H 20 156/90 H 99 - My Orders Last 24 Hours: My Active Orders 10/19/20 12:11 EKG Documentation Completion [RC] STAT CORONAVIRUS COVID-19 KIRK [MOLEC] Stat Sodium Chloride 0.9% [Saline Flush] 10 ml FLUSH ASDIRECTED PRN Sodium Chloride 0.9% [Saline Flush] 2.5 ml FLUSH ASDIRECTED PRN Saline Lock Insert [OM.PC] Stat 10/19/20 12:24 HEPATITIS PANEL (4) [REF] Stat 10/19/20 14:44 CULTURE BODY FLUID + SMEAR [RM] Stat LACTATE DEHYDROGENASE,BODY FL [BF] Stat - Assessment/Plan Last 24 Hours: My Active Orders 10/19/20 12:11 EKG Documentation Completion [RC] STAT CORONAVIRUS COVID-19 KIRK [MOLEC] Stat Sodium Chloride 0.9% [Saline Flush] 10 ml FLUSH ASDIRECTED PRN Sodium Chloride 0.9% [Saline Flush] 2.5 ml FLUSH ASDIRECTED PRN Saline Lock Insert [OM.PC] Stat 10/19/20 12:24 HEPATITIS PANEL (4) [REF] Stat 10/19/20 14:44 CULTURE BODY FLUID + SMEAR [RM] Stat LACTATE DEHYDROGENASE,BODY FL [BF] Stat
[2020-10-19 13:01] LABS: BLOOD UREA NITROGEN,BUN 9 mg/dL (7.0-18.0); CARBON DIOXIDE,CO2 23.6 mmol/L (21.0-32.0); CHLORIDE,CL 100 mmol/L (98-107); GLUCOSE RANDOM 106 mg/dL (74-106); LIPASE 107 U/L (73-393); POTASSIUM,K 3.5 mmol/L (3.5-5.1); SODIUM,NA 134 mmol/L (136-148)
--- NOTE | 2020-10-19 13:02 | CR ---
Indication: Shortness of breath and jaundice Comparison: Single view chest July 20, 2020 Technique: Single AP view chest Findings: There is hyperinflation and chronic interstitial change. There is bibasilar atelectasis versus scar, subtle underlying infiltrates are difficult to exclude. The cardiac silhouette is mildly prominent. The bony thorax is grossly intact. Impression: Linear basilar opacities likely representing atelectasis and/or parenchymal scarring, subtle infiltrates are difficult to exclude. Dictated by Denzel Darnell MD @ Oct 19 2020 12:59PM Signed by Dr. Denzel Darnell @ Oct 19 2020 1:00PM
[2020-10-19] MEDS ORDERED: Magnesium Sulfate/Water 2 GM in Premix Bag 1 BAG IV ONE (13:24)
[2020-10-19] MEDS ORDERED: Iopamidol 755 MG/ML 500 ML Multipack Bottle IVPUSH STA (13:34)
--- NOTE | 2020-10-19 15:06 | CT ---
Indication: Abdominal pain and bloating. Cirrhosis. Technique: A multiphasic CT scan was undertaken of the abdomen and pelvis prior to and during intravenous infusion 100 cc Isovue 370. Images were acquired during the arterial, 70 second portal venous phase and 10 minute delayed phase. Comparison: CT of the pelvis dated 07/20/2020 Findings: There is bibasilar subsegmental atelectasis and a trace amount of pleural fluid within the lower left thorax. There has been development of a small to moderate amount of ascitic fluid. The liver has a nodular contour and there is hypertrophy of the caudate lobe. There are multiple irregular low-density lesions within the hepatic parenchyma. The largest lesion within segment IV measures approximately 8 cm. There is mild splenomegaly. The pancreas appears normal. Tiny stones are noted within the neck of the gallbladder. The bile ducts are normal in size. There are portosystemic collateral venous channels within the abdomen including retroperitoneal collaterals. The kidneys and adrenal glands appear normal. There is no evidence of obstruction within the small intestine or colon. The prostate gland and partially filled urinary bladder appear normal. There is laxity of the inguinal canals with slight protrusion of fat and ascitic fluid on the left. Impression: Onset of ascites in this patient with a cirrhotic liver. There are persistent multiple low-density lesions within the hepatic parenchyma which may reflect either multifocal hepatoma or metastatic disease. Please note that all CT scans at this facility use dose modulation, iterative reconstruction, and/or weight-based dosing when appropriate to reduce radiation dose to as low as reasonably achievable. Dictated by Ranjit Graham MD @ Oct 19 2020 2:48PM Signed by Dr. Ranjit Graham @ Oct 19 2020 3:03PM
== END 2020-10-19 16:30 | disposition left against medical advice (07) ==
LOC: MW.ED 11:42
DX: E80.6 Other disorders of bilirubin metabolism (principal); R18.8 Other ascites; R74.01 Elevation of levels of liver transaminase levels
CPT/HCPCS: 36415; 49083; 71045; 74178; 80053; 80074; 82140; 82945; 83605; 83615; 83690; 83735; 84157; 85025; 85610; 85730; 87070; 87205; 89050; 93005; 96365; 99285; J3475; Q9967; 93010; 99284

== ENCOUNTER 2020-10-20 11:17 | Emergency (ER) | payer OTHER ==
--- NOTE | 2020-10-20 11:20 | EDM.PDOC ---
ED HPI GENERAL MEDICAL PROBLEM - General Stated Complaint: LIVER Time Seen by Provider: 10/20/20 11:19 Source of Information: Reports: Patient History Limitations: Reports: No Limitations - History of Present Illness INITIAL COMMENTS - FREE TEXT/NARRATIVE: 40-year-old male past medical history cirrhosis presents for transfer to a tertiary care center. He was seen yesterday and left AGAINST MEDICAL ADVICE so that he could take care of some things at home and agreed to come back today to transfer. Note from yesterday: 40-year-old male past medical history alcoholism, cirrhosis presents for worsening jaundice, scleral icterus, abdominal distention, chills, shortness of breath. Patient notes that he came to the emergency department in July [address] scan of his abdomen and pelvis which revealed evidence of enlarged liver with several masses in the liver. He has not followed up with anybody to have this evaluated. He does note that he has quit drinking alcohol for the last 2 months and was hoping the symptoms would go away but they do seem to be worsening. He denies any fevers. He notes nausea at times but denies vomiting. He notes that over the last couple of weeks his abdomen has become very distended and is uncomfortable and causing him shortness of breath. During patient's emergency department visit he was found to have elevated bilirubin to 16, transaminitis, leukocytosis. He underwent a paracentesis draining 2.5 L and with normal laboratory analysis of the fluid ruling out SBP. Patient notes that he was able to sleep much better last night after therapeutic paracentesis yesterday. He did start his lactulose last night noted that he had a couple episodes of diarrhea and one episode of emesis this morning. He denies any new abdominal pain. - Related Data Allergies Allergy/AdvReac Type Severity Reaction Status Date / Time No Known Allergies Allergy Verified 10/20/20 11:35 Home Meds: Home Meds Lactulose 20 gm PO TID 30 Days #473 ml 10/19/20 [Rx] Past Medical History - Past Health History Medical/Surgical History: Denies Medical/Surgical History HEENT History: Reports: None Cardiovascular History: Reports: None Respiratory History: Reports: None Gastrointestinal History: Reports: None, Other (See Below) Other Gastrointestinal History: Mass on Liver Genitourinary History: Reports: UTI, Recurrent Musculoskeletal History: Reports: None Other Musculoskeletal History: lower extremity pain from gout Neurological History: Reports: None Psychiatric History: Reports: None Endocrine/Metabolic History: Reports: None Hematologic History: Reports: None Immunologic History: Reports: None Oncologic (Cancer) History: Reports: None Dermatologic History: Reports: None - Infectious Disease History Infectious Disease History: Reports: Chicken Pox - Past Surgical History Head Surgeries/Procedures: Reports: None HEENT Surgical History: Reports: None Cardiovascular Surgical History: Reports: None Respiratory Surgical History: Reports: None GI Surgical History: Reports: None Male Surgical History: Reports: None Endocrine Surgical History: Reports: None Neurological Surgical History: Reports: None Musculoskeletal Surgical History: Reports: None Oncologic Surgical History: Reports: None Dermatological Surgical History: Reports: None Social & Family History - Family History Family Medical History: No Pertinent Family History Cardiac: Reports: Hypertension - Caffeine Use Caffeine Use: Reports: Coffee ED ROS GENERAL - Review of Systems Review Of Systems: Comprehensive ROS is negative, except as noted in HPI. ED EXAM, GENERAL - Physical Exam Exam: See Below Exam Limited By: No Limitations General Appearance: Alert, WD/WN, No Apparent Distress Eye Exam: Bilateral Eye: Other (Scleral icterus) Ears: Hearing Grossly Normal Throat/Mouth: Normal Voice, No Airway Compromise Head: Atraumatic, Normocephalic Neck: Normal Inspection Respiratory/Chest: No Respiratory Distress, Lungs Clear, Normal Breath Sounds, No Accessory Muscle Use Cardiovascular: Normal Peripheral Pulses, Regular Rate, Rhythm GI/Abdominal: Soft, Other (Abdominal distention with positive fluid wave) Extremities: Normal Inspection Neurological: Alert, Normal Cognition, Normal Gait Psychiatric: Normal Affect, Normal Mood Skin Exam: Warm, Dry, Intact, Other (Jaundice) Course - Vital Signs Last Recorded V/S: Last Vital Signs Temp 97.6 F 10/20/20 11:32 Pulse 114 H 10/20/20 11:32 Resp 16 10/20/20 11:32 BP 145/85 H 10/20/20 11:32 Pulse Ox 95 10/20/20 11:32 - Orders/Labs/Meds Labs: Laboratory Tests 10/20/20 10/20/20 10/20/20 Range/Units 11:37 11:37 11:37 WBC 17.64 H (4.0-11.0) K/uL RBC 3.06 L (4.50-5.90) M/uL Hgb 10.8 L (13.0-17.0) g/dL Hct 31.1 L (38.0-50.0) % MCV 101.6 H (80.0-98.0) fL MCH 35.3 H (27.0-32.0) pg MCHC 34.7 (31.0-37.0) g/dL RDW Std Deviation 51.5 (28.0-62.0) fl RDW Coeff of Jannette 14 (11.0-15.0) % Plt Count 231 (150-400) K/uL MPV 9.60 (7.40-12.00) fL Neut % (Auto) 81.1 H (48.0-80.0) % Lymph % (Auto) 9.0 L (16.0-40.0) % [place] % (Auto) 7.8 (0.0-15.0) % Eos % (Auto) 1.4 (0.0-7.0) % Baso % (Auto) 0.7 (0.0-1.5) % Neut # (Auto) 14.3 H (1.4-5.7) K/uL Lymph # (Auto) 1.6 (0.6-2.4) K/uL [place] # (Auto) 1.4 H (0.0-0.8) K/uL Eos # (Auto) 0.2 (0.0-0.7) K/uL Baso # (Auto) 0.1 (0.0-0.1) K/uL Nucleated RBC % 0.0 /100WBC Nucleated RBCs # 0 K/uL INR 1.99 APTT 31.8 H (18.6-31.3) SEC Sodium 135 L (136-148) mmol/L Potassium 3.8 (3.5-5.1) mmol/L Chloride 100 (98-107) mmol/L Carbon Dioxide 26.0 (21.0-32.0) mmol/L BUN 9 (7.0-18.0) mg/dL Creatinine 0.7 L (0.8-1.3) mg/dL Est Cr Clr Drug Dosing 143.39 mL/min Estimated GFR (MDRD) > 60.0 ml/min Glucose 111 H (74-106) mg/dL Calcium 9.0 (8.5-10.1) mg/dL Magnesium 1.7 L (1.8-2.4) mg/dL Total Bilirubin 12.8 H (0.2-1.0) mg/dL AST 154 H (15-37) IU/L ALT 78 H (14-63) IU/L Alkaline Phosphatase 487 H (46-116) U/L Total Protein 9.1 H (6.4-8.2) g/dL Albumin 2.3 L (3.4-5.0) g/dL Globulin 6.8 H (2.6-4.0) g/dL Albumin/Globulin Ratio 0.3 L (0.9-1.6) SARS-CoV-2 RNA (KIRK) (NEGATIVE) 10/20/20 Range/Units 11:44 WBC (4.0-11.0) K/uL RBC (4.50-5.90) M/uL Hgb (13.0-17.0) g/dL Hct (38.0-50.0) % MCV (80.0-98.0) fL MCH (27.0-32.0) pg MCHC (31.0-37.0) g/dL RDW Std Deviation (28.0-62.0) fl RDW Coeff of Jannette (11.0-15.0) % Plt Count (150-400) K/uL MPV (7.40-12.00) fL Neut % (Auto) (48.0-80.0) % Lymph % (Auto) (16.0-40.0) % [place] % (Auto) (0.0-15.0) % Eos % (Auto) (0.0-7.0) % Baso % (Auto) (0.0-1.5) % Neut # (Auto) (1.4-5.7) K/uL Lymph # (Auto) (0.6-2.4) K/uL [place] # (Auto) (0.0-0.8) K/uL Eos # (Auto) (0.0-0.7) K/uL Baso # (Auto) (0.0-0.1) K/uL Nucleated RBC % /100WBC Nucleated RBCs # K/uL INR APTT (18.6-31.3) SEC Sodium (136-148) mmol/L Potassium (3.5-5.1) mmol/L Chloride (98-107) mmol/L Carbon Dioxide (21.0-32.0) mmol/L BUN (7.0-18.0) mg/dL Creatinine (0.8-1.3) mg/dL Est Cr Clr Drug Dosing mL/min Estimated GFR (MDRD) ml/min Glucose (74-106) mg/dL Calcium (8.5-10.1) mg/dL Magnesium (1.8-2.4) mg/dL Total Bilirubin (0.2-1.0) mg/dL AST (15-37) IU/L ALT (14-63) IU/L Alkaline Phosphatase (46-116) U/L Total Protein (6.4-8.2) g/dL Albumin (3.4-5.0) g/dL Globulin (2.6-4.0) g/dL Albumin/Globulin Ratio (0.9-1.6) SARS-CoV-2 RNA (KIRK) NEGATIVE (NEGATIVE) Meds: Medications Discontinued Medications Generic Name Dose Route Start Last Admin Trade Name Freq PRN Reason Stop Dose Admin Sodium Chloride 10 ml 10/20/20 11:22 Sodium Chloride 0.9% 10 Ml Syringe FLUSH ASDIRECTED PRN Keep Vein Open Sodium Chloride 2.5 ml 10/20/20 11:22 Sodium Chloride 0.9% 2.5 Ml Syringe FLUSH ASDIRECTED PRN Keep Vein Open - Re-Assessments/Exams Free Text/Narrative Re-Assessment/Exam: 10/20/20 11:22 Will reach out to for transfer of care. 10/20/20 13:02 Dr. Sadiq Quiroz of agrees to accept patient under his care. Departure - Departure Time of Disposition: 13:02 Disposition: DC/Tfer to Acute Hospital 02 Condition: Fair Clinical Impression: Liver failure Qualifiers: Liver failure chronicity: unspecified chronicity Hepatic coma status: without hepatic coma Qualified Code(s): K72.90 - Hepatic failure, unspecified without coma - Discharge Information Referrals: Lupillo Leon CO[employer] WR[employer]PER [Primary Care Provider] - Sepsis Event Note (ED) - Focused Exam Vital Signs: Vital Signs Temp Pulse Resp BP Pulse Ox 10/20/20 11:32 97.6 F 114 H 16 145/85 H 95
[2020-10-20] MEDS ORDERED: Sodium Chloride 0.9% 2.5 ML Syringe FLUSH PRN (11:22)
[2020-10-20] MEDS ORDERED: Sodium Chloride 0.9% 10 ML Syringe FLUSH PRN (11:22)
[2020-10-20 12:08] LABS: BLOOD UREA NITROGEN,BUN 9 mg/dL (7.0-18.0); CHLORIDE,CL 100 mmol/L (98-107); GLUCOSE RANDOM 111 mg/dL (74-106); POTASSIUM,K 3.8 mmol/L (3.5-5.1); SODIUM,NA 135 mmol/L (136-148)
== END 2020-10-20 13:24 ==
LOC: MW.ED 11:17
DX: K72.90 Hepatic failure, unspecified without coma (principal); Z20.822 Contact with and (suspected) exposure to COVID-19
CPT/HCPCS: 36415; 80053; 83735; 85025; 85610; 85730; 99284; 99285; U0002

== ENCOUNTER 2020-10-27 08:19 | Emergency (ER) | payer OTHER ==
--- NOTE | 2020-10-27 08:44 | EDM.PDOC ---
ED HPI GENERAL MEDICAL PROBLEM - General Chief Complaint: General Stated Complaint: DRAIN FLUID Time Seen by Provider: 10/27/20 08:32 Source of Information: Reports: Patient History Limitations: Reports: No Limitations - History of Present Illness INITIAL COMMENTS - FREE TEXT/NARRATIVE: Patient is a 40-year-old male with recent diagnosis of liver cirrhosis presents today for abdominal distention. He states he feels his abdomen is distended and feels like is becoming difficult to breathe because of his abdomen when he lays flat. Pain states abdomen is also increasing in size. Patient denies any abdominal pain currently any nausea vomiting fever chills multiple points. Patient was seen here few days ago had a paracentesis and needs to be transferred [facility] elevated liver enzymes. Patient currently states he feels at baseline has no complaints. - Related Data Allergies Allergy/AdvReac Type Severity Reaction Status Date / Time No Known Allergies Allergy Verified 10/27/20 08:31 Home Meds: Home Meds Lactulose 20 gm PO TID 30 Days #473 ml 10/19/20 [Rx] Past Medical History - Past Health History Medical/Surgical History: Denies Medical/Surgical History HEENT History: Reports: None Cardiovascular History: Reports: None Respiratory History: Reports: None Gastrointestinal History: Reports: Other (See Below) Other Gastrointestinal History: Mass on Liver Genitourinary History: Reports: UTI, Recurrent Musculoskeletal History: Reports: Other (See Below) Other Musculoskeletal History: lower extremity pain from gout Neurological History: Reports: None Psychiatric History: Reports: None Endocrine/Metabolic History: Reports: None Hematologic History: Reports: None Immunologic History: Reports: None Oncologic (Cancer) History: Reports: None Dermatologic History: Reports: None - Infectious Disease History Infectious Disease History: Reports: Chicken Pox - Past Surgical History Head Surgeries/Procedures: Reports: None HEENT Surgical History: Reports: None Cardiovascular Surgical History: Reports: None Respiratory Surgical History: Reports: None GI Surgical History: Reports: None Male Surgical History: Reports: None Endocrine Surgical History: Reports: None Neurological Surgical History: Reports: None Musculoskeletal Surgical History: Reports: None Oncologic Surgical History: Reports: None Dermatological Surgical History: Reports: None Social & Family History - Family History Family Medical History: No Pertinent Family History Cardiac: Reports: Hypertension - Tobacco Use Tobacco Use Status *Q: Never Tobacco User - Caffeine Use Caffeine Use: Reports: None - Recreational Drug Use Recreational Drug Use: No ED ROS GENERAL - Review of Systems Review Of Systems: See Below Constitutional: Reports: No Symptoms HEENT: Reports: No Symptoms Respiratory: Reports: No Symptoms Cardiovascular: Reports: No Symptoms Endocrine: Reports: No Symptoms GI/Abdominal: Reports: No Symptoms : Reports: No Symptoms Musculoskeletal: Reports: No Symptoms Skin: Reports: No Symptoms Neurological: Reports: No Symptoms Psychiatric: Reports: No Symptoms Hematologic/Lymphatic: Reports: No Symptoms Immunologic: Reports: No Symptoms ED EXAM, GENERAL - Physical Exam Exam: See Below Exam Limited By: No Limitations General Appearance: Alert, WD/WN, No Apparent Distress Respiratory/Chest: No Respiratory Distress, Lungs Clear, Normal Breath Sounds Cardiovascular: Normal Peripheral Pulses, Regular Rate, Rhythm, No Edema GI/Abdominal: Normal Bowel Sounds, Non-Tender, Distended Extremities: Normal Inspection, Normal Range of Motion Neurological: Alert, Oriented Course - Vital Signs Last Recorded V/S: Last Vital Signs Temp 99.2 F 10/27/20 08:31 Pulse 100 10/27/20 08:31 Resp 17 10/27/20 08:31 BP 141/82 H 10/27/20 08:31 Pulse Ox 98 10/27/20 08:31 - Orders/Labs/Meds Labs: Laboratory Tests 10/27/20 10/27/20 10/27/20 Range/Units 08:53 08:53 08:53 WBC 15.97 H (4.0-11.0) K/uL RBC 3.05 L (4.50-5.90) M/uL Hgb 10.8 L (13.0-17.0) g/dL Hct 31.0 L (38.0-50.0) % MCV 101.6 H (80.0-98.0) fL MCH 35.4 H (27.0-32.0) pg MCHC 34.8 (31.0-37.0) g/dL RDW Std Deviation 51.8 (28.0-62.0) fl RDW Coeff of Jannette 14 (11.0-15.0) % Plt Count 269 (150-400) K/uL MPV 9.60 (7.40-12.00) fL Neut % (Auto) 75.9 (48.0-80.0) % Lymph % (Auto) 13.5 L (16.0-40.0) % [place] % (Auto) 8.3 (0.0-15.0) % Eos % (Auto) 1.5 (0.0-7.0) % Baso % (Auto) 0.8 (0.0-1.5) % Neut # (Auto) 12.1 H (1.4-5.7) K/uL Lymph # (Auto) 2.2 (0.6-2.4) K/uL Williamson # (Auto) 1.3 H (0.0-0.8) K/uL Eos # (Auto) 0.2 (0.0-0.7) K/uL Baso # (Auto) 0.1 (0.0-0.1) K/uL Nucleated RBC % 0.0 /100WBC Nucleated RBCs # 0 K/uL INR 2.06 APTT 32.0 H (18.6-31.3) SEC Sodium 134 L (136-148) mmol/L Potassium 3.6 (3.5-5.1) mmol/L Chloride 100 (98-107) mmol/L Carbon Dioxide 23.0 (21.0-32.0) mmol/L BUN 8 (7.0-18.0) mg/dL Creatinine 0.7 L (0.8-1.3) mg/dL Est Cr Clr Drug Dosing 143.39 mL/min Estimated GFR (MDRD) > 60.0 ml/min Glucose 111 H (74-106) mg/dL Calcium 8.3 L (8.5-10.1) mg/dL Total Bilirubin 10.5 H (0.2-1.0) mg/dL AST 111 H (15-37) IU/L ALT 64 H (14-63) IU/L Alkaline Phosphatase 413 H (46-116) U/L Ammonia (19-54) ug/dL Total Protein 8.4 H (6.4-8.2) g/dL Albumin 2.2 L (3.4-5.0) g/dL Globulin 6.2 H (2.6-4.0) g/dL Albumin/Globulin Ratio 0.4 L (0.9-1.6) 10/27/20 Range/Units 08:53 WBC (4.0-11.0) K/uL RBC (4.50-5.90) M/uL Hgb (13.0-17.0) g/dL Hct (38.0-50.0) % MCV (80.0-98.0) fL MCH (27.0-32.0) pg MCHC (31.0-37.0) g/dL RDW Std Deviation (28.0-62.0) fl RDW Coeff of Jannette (11.0-15.0) % Plt Count (150-400) K/uL MPV (7.40-12.00) fL Neut % (Auto) (48.0-80.0) % Lymph % (Auto) (16.0-40.0) % [place] % (Auto) (0.0-15.0) % Eos % (Auto) (0.0-7.0) % Baso % (Auto) (0.0-1.5) % Neut # (Auto) (1.4-5.7) K/uL Lymph # (Auto) (0.6-2.4) K/uL Williamson # (Auto) (0.0-0.8) K/uL Eos # (Auto) (0.0-0.7) K/uL Baso # (Auto) (0.0-0.1) K/uL Nucleated RBC % /100WBC Nucleated RBCs # K/uL INR APTT (18.6-31.3) SEC Sodium (136-148) mmol/L Potassium (3.5-5.1) mmol/L Chloride (98-107) mmol/L Carbon Dioxide (21.0-32.0) mmol/L BUN (7.0-18.0) mg/dL Creatinine (0.8-1.3) mg/dL Est Cr Clr Drug Dosing mL/min Estimated GFR (MDRD) ml/min Glucose (74-106) mg/dL Calcium (8.5-10.1) mg/dL Total Bilirubin (0.2-1.0) mg/dL AST (15-37) IU/L ALT (14-63) IU/L Alkaline Phosphatase (46-116) U/L Ammonia 62 H (19-54) ug/dL Total Protein (6.4-8.2) g/dL Albumin (3.4-5.0) g/dL Globulin (2.6-4.0) g/dL Albumin/Globulin Ratio (0.9-1.6) Meds: Medications Discontinued Medications Generic Name Dose Route Start Last Admin Trade Name Sherri PRN Reason Stop Dose Admin Lidocaine/Epinephrine 20 ml 10/27/20 09:52 10/27/20 10:26 Lidocaine 1% With Epinephrine 1:100,000 20 Ml Mdv INJECT 10/27/20 09:53 Not Given ONETIME ONE - Re-Assessments/Exams Free Text/Narrative Re-Assessment/Exam: 10/27/20 10:40 We did a bedside sono small amount of fluid we attempted to do a paracentesis no fluid was able to be extracted there is only a small amount. We placed a bandage and the bleeding is stopped. Patient seems to be doing well. Patient made aware of his labs bilirubin has improved still 10.5 down from 16 LFTs are stable from last time. Patient is still scheduling follow-up at the [place] patient given strict return precautions. Departure - Departure Time of Disposition: 10:41 Disposition: Home, Self-Care 01 Condition: Good Clinical Impression: Ascites - Discharge Information *PRESCRIPTION DRUG MONITORING PROGRAM REVIEWED*: Not Applicable *COPY OF PRESCRIPTION DRUG MONITORING REPORT IN PATIENT RACHELL: Not Applicable Instructions: Ascites Referrals: Lupillo Leon NP [Primary Care Provider] - Forms: ED Department Discharge Additional Instructions: The following information is given to patients seen in the emergency department who are being discharged to home. This information is to outline your options for follow-up care. We provide all patients seen in our emergency department with a follow-up referral. The need for follow-up, as well as the timing and circumstances, are variable depending upon the specifics of your emergency department visit. If you don't have a primary care physician on staff, we will provide you with a referral. We always advise you to contact your personal physician following an emergency department visit to inform them of the circumstance of the visit and for follow-up with them and/or the need for any referrals to a consulting specialist. The emergency department will also refer you to a specialist when appropriate. This referral assures that you have the opportunity for follow-up care with a specialist. All of these measure are taken in an effort to provide you with optimal care, which includes your follow-up. Under all circumstances we always encourage you to contact your private physician who remains a resource for coordinating your care. When calling for follow-up care, please make the office aware that this follow-up is from your recent emergency room visit. If for any reason you are refused follow-up, please contact the [facility] Emergency Department at and asked to speak to the emergency department charge nurse. Please follow up with your primary care physician. If you do not have a primary care physician, see below: [facility] [address], [place] [address] My [facility] [address] [place] [address] You were seen today for fluid in your abdomen we attempted to correct some of the fluid but there was only a small amount were unsuccessful. For now the fluid may continue to accumulate if you get appointment abdomen is distended and super tender please return to the ED develop any fevers or chills in the meantime please return to the ED as well. We reviewed your labs your labs are improving from previous visit but they are still elevated please again continue to try to obtain follow-up for your liver failure. Sepsis Event Note (ED) - Evaluation Sepsis Screening Result: No Definite Risk - Focused Exam Vital Signs: Vital Signs Temp Pulse Resp BP Pulse Ox 10/27/20 08:31 99.2 F 100 17 141/82 H 98 - Assessment/Plan Plan: Patient is a 40-year-old male who presents today for abdominal distention. Patient had a recent diagnosis of liver cirrhosis from previous alcohol use. Patient presents today for possible paracentesis. Previous provider told patient that he can come to the ER if he needs a half tabs until he can follow- up in the pain resources for management of his liver cirrhosis. Will obtain basic labs and likely provide paracentesis for patient.
[2020-10-27 09:19] LABS: BLOOD UREA NITROGEN,BUN 8 mg/dL (7.0-18.0); CHLORIDE,CL 100 mmol/L (98-107); GLUCOSE RANDOM 111 mg/dL (74-106); POTASSIUM,K 3.6 mmol/L (3.5-5.1); SODIUM,NA 134 mmol/L (136-148)
[2020-10-27] MEDS ORDERED: Lidocaine 1% with EPINEPHrine 1:100,000 10 ML MDV INJECT ONE (09:45)
[2020-10-27] MEDS ORDERED: Lidocaine 1% with EPINEPHrine 1:100,000 20 ML MDV INJECT ONE (09:52)
== END 2020-10-27 10:47 | disposition home or self-care (01) ==
LOC: MW.ED 08:19
DX: R18.8 Other ascites (principal)
CPT/HCPCS: 36415; 49083; 80053; 82140; 85025; 85610; 85730; 99283; 99284-25

== ENCOUNTER 2020-10-30 10:58 | Emergency (ER) | payer OTHER ==
[2020-10-30] MEDS ORDERED: Sodium Chloride 0.9% 10 ML Syringe FLUSH PRN (11:43)
[2020-10-30] MEDS ORDERED: Sodium Chloride 0.9% 2.5 ML Syringe FLUSH PRN (11:43)
--- NOTE | 2020-10-30 11:48 | EDM.PDOC ---
ED HPI GENERAL MEDICAL PROBLEM - General Chief Complaint: Abdominal Pain Stated Complaint: FLUID ABDOMEN BUILD UP Time Seen by Provider: 10/30/20 11:32 - History of Present Illness INITIAL COMMENTS - FREE TEXT/NARRATIVE: 40-year-old male with a history of alcohol induced cirrhosis presents with abdominal distention shortness of breath. Patient has been seen in this ER a few times over the last several weeks for this condition. He last had a therapeutic paracentesis here 2 weeks ago when approximately 2-1/2 L was drained. 4 days ago seen here and an adequate fluid pocket could not be found and so no drainage was performed. He has been compliant with his lactulose as well as his follow-up. He has an appointment with his primary care doctor [facility] tomorrow to set up additional appointments and follow-up. He does not have any outpatient paracenteses scheduled at this time. No fevers his abdomen feels very tight and distended but he denies any abdominal pain. Symptoms constant slowly progressive his breathing worsens when he lays flat no other associated symptoms. Abdomen Pain Score (Numeric/FACES): 7 - Related Data Allergies Allergy/AdvReac Type Severity Reaction Status Date / Time No Known Allergies Allergy Verified 10/30/20 11:27 Home Meds: Home Meds Lactulose 20 gm PO TID 30 Days #473 ml 10/19/20 [Rx] Past Medical History - Past Health History Medical/Surgical History: Denies Medical/Surgical History HEENT History: Reports: None Cardiovascular History: Reports: None Respiratory History: Reports: None Gastrointestinal History: Reports: Other (See Below) Other Gastrointestinal History: Mass on Liver Genitourinary History: Reports: UTI, Recurrent Musculoskeletal History: Reports: Other (See Below) Other Musculoskeletal History: lower extremity pain from gout Neurological History: Reports: None Psychiatric History: Reports: None Endocrine/Metabolic History: Reports: None Hematologic History: Reports: None Immunologic History: Reports: None Oncologic (Cancer) History: Reports: None Dermatologic History: Reports: None - Infectious Disease History Infectious Disease History: Reports: Chicken Pox - Past Surgical History Head Surgeries/Procedures: Reports: None HEENT Surgical History: Reports: None Cardiovascular Surgical History: Reports: None Respiratory Surgical History: Reports: None GI Surgical History: Reports: None Male Surgical History: Reports: None Endocrine Surgical History: Reports: None Neurological Surgical History: Reports: None Musculoskeletal Surgical History: Reports: None Oncologic Surgical History: Reports: None Dermatological Surgical History: Reports: None Social & Family History - Family History Family Medical History: No Pertinent Family History Cardiac: Reports: Hypertension - Tobacco Use Tobacco Use Status *Q: Never Tobacco User Second Hand Smoke Exposure: No - Caffeine Use Caffeine Use: Reports: Coffee - Recreational Drug Use Recreational Drug Use: No ED ROS GENERAL - Review of Systems Review Of Systems: See Below Free Text/Narrative/Comment: General: No fever. Skin: No rash. Eyes: No vision problems. ENT: No sore throat. Neck: No neck stiffness. Respiratory: Per HPI Cardiac: No chest pain. Gastrointestinal: Per HPI Urinary: No dysuria. Musculoskeletal: No myalgias/arthralgias. Neurologic: No headache. ED EXAM, GENERAL - Physical Exam Exam: See Below Free Text/Narrative:: General Appearance: No acute distress, appears comfortable Skin: Significant jaundice, few scattered telangiectasias HEENT: Normocephalic/atraumatic, significant scleral icterus, mucous membranes moist Neck: Normal range of motion Chest and Lungs: Bilateral breath sounds, clear to auscultation Cardiovascular: Regular rate and rhythm, no murmur, no lower extremity edema no anasarca Abdomen: Abdomen is tense and distended with positive fluid wave but no focal tenderness Musculoskeletal: No edema or tenderness Neurologic: Awake, alert, no obvious deficits, moving all extremities Psychiatric: Appropriate, cooperative ED GENERAL MEDICAL PROCEDURES - Additional/Other Procedure(s) Other (Free Text) Procedure(s): After consent was obtained and timeout was performed and appropriate ascites pocket was identified in the left lower quadrant. The area was then sterilized with ChloraPrep. Barrier precautions were used in sterile technique was maintained. Using an ultrasound probe cover and maintaining sterile technique the area was numbed with 1% lidocaine without epinephrine a total of 3 cc. The ascites pocket was entered under dynamic ultrasound guidance using a Z technique approach. The needle was then withdrawn. Unfortunately Vacutainer's had difficulty extracting significant fluid. A total of approximately 600ml was extracted with a vacuum case assembler. Apparatus was then switched to the thoracentesis kit and an additional 400 cc was extracted manually. The patient tolerated the procedure well without immediate complication the catheter was withdrawn and sterile gauze and Tegaderm was applied. Course - Vital Signs Last Recorded V/S: Last Vital Signs Temp 99.4 F 10/30/20 14:32 Pulse 99 10/30/20 14:32 Resp 18 10/30/20 14:32 BP 135/86 10/30/20 14:32 Pulse Ox 96 10/30/20 14:32 - Orders/Labs/Meds Orders: Active Orders 24 hr Category Date Time Status Sodium Chloride 0.9% [Saline Flush] Med 10/30/20 11:43 Active 10 ml FLUSH ASDIRECTED PRN Sodium Chloride 0.9% [Saline Flush] Med 10/30/20 11:43 Active 2.5 ml FLUSH ASDIRECTED PRN Saline Lock Insert [OM.PC] Stat Oth 10/30/20 11:43 Ordered Medication Orders Sodium Chloride (Sodium Chloride 0.9% 10 Ml Syringe) 10 ml FLUSH ASDIRECTED PRN PRN Reason: Keep Vein Open Last Admin: 10/30/20 12:54 Dose: 10 ml Documented by: NICKY Sodium Chloride (Sodium Chloride 0.9% 2.5 Ml Syringe) 2.5 ml FLUSH ASDIRECTED PRN PRN Reason: Keep Vein Open Last Admin: 10/30/20 12:54 Dose: 2.5 ml Documented by: NICKY Labs: Laboratory Tests 10/30/20 10/30/20 10/30/20 Range/Units 12:35 12:35 12:35 WBC 14.79 H (4.0-11.0) K/uL RBC 3.09 L (4.50-5.90) M/uL Hgb 11.1 L (13.0-17.0) g/dL Hct 31.7 L (38.0-50.0) % MCV 102.6 H (80.0-98.0) fL MCH 35.9 H (27.0-32.0) pg MCHC 35.0 (31.0-37.0) g/dL RDW Std Deviation 53.4 (28.0-62.0) fl RDW Coeff of Jannette 15 (11.0-15.0) % Plt Count 272 (150-400) K/uL MPV 9.40 (7.40-12.00) fL Neut % (Auto) 79.9 (48.0-80.0) % Lymph % (Auto) 10.8 L (16.0-40.0) % [place] % (Auto) 6.8 (0.0-15.0) % Eos % (Auto) 1.9 (0.0-7.0) % Baso % (Auto) 0.6 (0.0-1.5) % Neut # (Auto) 11.8 H (1.4-5.7) K/uL Lymph # (Auto) 1.6 (0.6-2.4) K/uL [place] # (Auto) 1.0 H (0.0-0.8) K/uL Eos # (Auto) 0.3 (0.0-0.7) K/uL Baso # (Auto) 0.1 (0.0-0.1) K/uL Nucleated RBC % 0.0 /100WBC Nucleated RBCs # 0 K/uL INR 1.95 APTT 31.6 H (18.6-31.3) SEC Sodium 136 (136-148) mmol/L Potassium 3.5 (3.5-5.1) mmol/L Chloride 102 (98-107) mmol/L Carbon Dioxide 23.6 (21.0-32.0) mmol/L BUN 4 L (7.0-18.0) mg/dL Creatinine 0.7 L (0.8-1.3) mg/dL Est Cr Clr Drug Dosing 143.39 mL/min Estimated GFR (MDRD) > 60.0 ml/min Glucose 105 (74-106) mg/dL Calcium 8.1 L (8.5-10.1) mg/dL Total Bilirubin 10.7 H (0.2-1.0) mg/dL AST 121 H (15-37) IU/L ALT 64 H (14-63) IU/L Alkaline Phosphatase 458 H (46-116) U/L Total Protein 8.5 H (6.4-8.2) g/dL Albumin 2.1 L (3.4-5.0) g/dL Globulin 6.4 H (2.6-4.0) g/dL Albumin/Globulin Ratio 0.3 L (0.9-1.6) Fluid Type Fluid Color Fluid Appearance Fluid WBC /uL Fluid RBC /uL Fluid Mononuclear Cell % Fl Polymorphonucl Cell % 10/30/20 Range/Units 13:50 WBC (4.0-11.0) K/uL RBC (4.50-5.90) M/uL Hgb (13.0-17.0) g/dL Hct (38.0-50.0) % MCV (80.0-98.0) fL MCH (27.0-32.0) pg MCHC (31.0-37.0) g/dL RDW Std Deviation (28.0-62.0) fl RDW Coeff of Jannette (11.0-15.0) % Plt Count (150-400) K/uL MPV (7.40-12.00) fL Neut % (Auto) (48.0-80.0) % Lymph % (Auto) (16.0-40.0) % [place] % (Auto) (0.0-15.0) % Eos % (Auto) (0.0-7.0) % Baso % (Auto) (0.0-1.5) % Neut # (Auto) (1.4-5.7) K/uL Lymph # (Auto) (0.6-2.4) K/uL [place] # (Auto) (0.0-0.8) K/uL Eos # (Auto) (0.0-0.7) K/uL Baso # (Auto) (0.0-0.1) K/uL Nucleated RBC % /100WBC Nucleated RBCs # K/uL INR APTT (18.6-31.3) SEC Sodium (136-148) mmol/L Potassium (3.5-5.1) mmol/L Chloride (98-107) mmol/L Carbon Dioxide (21.0-32.0) mmol/L BUN (7.0-18.0) mg/dL Creatinine (0.8-1.3) mg/dL Est Cr Clr Drug Dosing mL/min Estimated GFR (MDRD) ml/min Glucose (74-106) mg/dL Calcium (8.5-10.1) mg/dL Total Bilirubin (0.2-1.0) mg/dL AST (15-37) IU/L ALT (14-63) IU/L Alkaline Phosphatase (46-116) U/L Total Protein (6.4-8.2) g/dL Albumin (3.4-5.0) g/dL Globulin (2.6-4.0) g/dL Albumin/Globulin Ratio (0.9-1.6) Fluid Type PER Fluid Color YELLOW Fluid Appearance CLEAR Fluid WBC 226 /uL Fluid RBC < 3000 /uL Fluid Mononuclear Cell 89 % Fl Polymorphonucl Cell 11 % Meds: Medications Generic Name Dose Route Start Last Admin Trade Name Freq PRN Reason Stop Dose Admin Sodium Chloride 10 ml 10/30/20 11:43 10/30/20 12:54 Sodium Chloride 0.9% 10 Ml Syringe FLUSH 10 ml ASDIRECTED PRN Administration Keep Vein Open Sodium Chloride 2.5 ml 10/30/20 11:43 10/30/20 12:54 Sodium Chloride 0.9% 2.5 Ml Syringe FLUSH 2.5 ml ASDIRECTED PRN Administration Keep Vein Open Departure - Departure Time of Disposition: 14:20 Disposition: Home, Self-Care 01 Condition: Good Clinical Impression: Cirrhosis of liver with ascites - Discharge Information *PRESCRIPTION DRUG MONITORING PROGRAM REVIEWED*: Not Applicable *COPY OF PRESCRIPTION DRUG MONITORING REPORT IN PATIENT RACHELL: Not Applicable Instructions: Cirrhosis Referrals: Lupillo Leon NP [Primary Care Provider] - Forms: ED Department Discharge Additional Instructions: Please be sure to keep your primary care appointment tomorrow. Please keep the dressing on your abdomen in place for the next 24 hours. After that you can remove it and apply Band-Aid. If you notice any persistent drainage following this removal bleeding redness worsening pain fevers or any other new symptoms that concern you please call your doctor or return to the ER. The following information is given to patients seen in the emergency department who are being discharged to home. This information is to outline your options for follow-up care. We provide all patients seen in our emergency department with a follow-up referral. The need for follow-up, as well as the timing and circumstances, are variable depending upon the specifics of your emergency department visit. If you don't have a primary care physician on staff, we will provide you with a referral. We always advise you to contact your personal physician following an emergency department visit to inform them of the circumstance of the visit and for follow-up with them and/or the need for any referrals to a consulting specialist. The emergency department will also refer you to a specialist when appropriate. This referral assures that you have the opportunity for follow-up care with a specialist. All of these measure are taken in an effort to provide you with optimal care, which includes your follow-up. Under all circumstances we always encourage you to contact your private physician who remains a resource for coordinating your care. When calling for follow-up care, please make the office aware that this follow-up is from your recent emergency room visit. If for any reason you are refused follow-up, please contact the [facility] Emergency Department at and asked to speak to the emergency department charge nurse. Sepsis Event Note (ED) - Evaluation Sepsis Screening Result: No Definite Risk - Focused Exam Vital Signs: Vital Signs Temp Pulse Resp BP Pulse Ox 10/30/20 14:32 99.4 F 99 18 135/86 96 10/30/20 11:28 99.0 F 99 16 141/85 H 98 - My Orders Last 24 Hours: My Active Orders 10/30/20 11:43 Sodium Chloride 0.9% [Saline Flush] 10 ml FLUSH ASDIRECTED PRN Sodium Chloride 0.9% [Saline Flush] 2.5 ml FLUSH ASDIRECTED PRN Saline Lock Insert [OM.PC] Stat - Assessment/Plan Last 24 Hours: My Active Orders 10/30/20 11:43 Sodium Chloride 0.9% [Saline Flush] 10 ml FLUSH ASDIRECTED PRN Sodium Chloride 0.9% [Saline Flush] 2.5 ml FLUSH ASDIRECTED PRN Saline Lock Insert [OM.PC] Stat Assessment:: 40-year-old male presenting with abdominal distention and shortness of breath likely secondary to ascites due to his alcohol induced cirrhosis. Hemodynamically stable at this time. However, the patient is visibly mildly dyspneic. He does not currently have any outpatient paracenteses scheduled. Labs are pending. If his LFTs are stable to downtrending I do not think he requires emergent transfer to [place]. If this is the case we will evaluate with bedside ultrasound to see if paracentesis in the ER is appropriate. Patient's labs in general are improving white count is downtrending. 1 L of ascites was removed without immediate complication. PMN count was 223. Pt feels improved, no fever. Pt discharged to f/u with PCP. Return precautions discussed and understood.
[2020-10-30 13:04] LABS: BLOOD UREA NITROGEN,BUN 4 mg/dL (7.0-18.0); CARBON DIOXIDE,CO2 23.6 mmol/L (21.0-32.0); CHLORIDE,CL 102 mmol/L (98-107); GLUCOSE RANDOM 105 mg/dL (74-106); POTASSIUM,K 3.5 mmol/L (3.5-5.1); SODIUM,NA 136 mmol/L (136-148)
== END 2020-10-30 14:38 | disposition home or self-care (01) ==
LOC: MW.ED 10:58
DX: K74.60 Unspecified cirrhosis of liver (principal); R18.8 Other ascites; Z79.899 Other long term (current) drug therapy
CPT/HCPCS: 36415; 49083; 80053; 85025; 85610; 85730; 89050; 99283; 99284-25

== ENCOUNTER 2020-11-09 11:26 | Emergency (ER) | payer OTHER ==
--- NOTE | 2020-11-09 12:40 | EDM.PDOC ---
ED HPI GENERAL MEDICAL PROBLEM - General Chief Complaint: Abdominal Pain Stated Complaint: abdominal pain Time Seen by Provider: 11/09/20 12:19 Source of Information: Reports: Patient History Limitations: Reports: No Limitations - History of Present Illness INITIAL COMMENTS - FREE TEXT/NARRATIVE: Patient is a 40-year-old male who presents today for abdominal distention. Patient was diagnosed with liver cirrhosis a few weeks ago. Patient presents today states that abdomen is slightly distended. Patient is hard difficult time following up to have paracentesis. Patient seen here few days ago and have the fluid need to be drained at that time. Patient has abdominal pain fever chills nausea vomiting. Abdominal Pain Pain Score (Numeric/FACES): 7 - Related Data Allergies Allergy/AdvReac Type Severity Reaction Status Date / Time No Known Allergies Allergy Verified 11/09/20 12:19 Home Meds: Home Meds Lactulose 20 gm PO TID 30 Days #473 ml 10/19/20 [Rx] Past Medical History - Past Health History Medical/Surgical History: Denies Medical/Surgical History HEENT History: Reports: None Cardiovascular History: Reports: None Respiratory History: Reports: None Gastrointestinal History: Reports: Other (See Below) Other Gastrointestinal History: Mass on Liver Genitourinary History: Reports: UTI, Recurrent Musculoskeletal History: Reports: Other (See Below) Other Musculoskeletal History: lower extremity pain from gout Neurological History: Reports: None Psychiatric History: Reports: None Endocrine/Metabolic History: Reports: None Hematologic History: Reports: None Immunologic History: Reports: None Oncologic (Cancer) History: Reports: None Dermatologic History: Reports: None - Infectious Disease History Infectious Disease History: Reports: Chicken Pox - Past Surgical History Head Surgeries/Procedures: Reports: None HEENT Surgical History: Reports: None Cardiovascular Surgical History: Reports: None Respiratory Surgical History: Reports: None GI Surgical History: Reports: None Male Surgical History: Reports: None Endocrine Surgical History: Reports: None Neurological Surgical History: Reports: None Musculoskeletal Surgical History: Reports: None Oncologic Surgical History: Reports: None Dermatological Surgical History: Reports: None Social & Family History - Family History Family Medical History: No Pertinent Family History Cardiac: Reports: Hypertension - Tobacco Use Tobacco Use Status *Q: Unknown Ever Used Tobacco - Caffeine Use Caffeine Use: Reports: Coffee - Recreational Drug Use Recreational Drug Use: No ED ROS GENERAL - Review of Systems Review Of Systems: See Below Constitutional: Reports: No Symptoms HEENT: Reports: No Symptoms Respiratory: Reports: No Symptoms Cardiovascular: Reports: No Symptoms Endocrine: Reports: No Symptoms GI/Abdominal: Reports: Distension : Reports: No Symptoms Musculoskeletal: Reports: No Symptoms Skin: Reports: No Symptoms Neurological: Reports: No Symptoms Psychiatric: Reports: No Symptoms Hematologic/Lymphatic: Reports: No Symptoms Immunologic: Reports: No Symptoms ED EXAM, GI/ABD - Physical Exam Exam: See Below Exam Limited By: No Limitations General Appearance: Alert, WD/WN, No Apparent Distress Head: Atraumatic Respiratory/Chest: No Respiratory Distress, Lungs Clear Cardiovascular: Normal Peripheral Pulses, Regular Rate, Rhythm GI/Abdominal Exam: Normal Bowel Sounds, Distended Neurological: Alert, Oriented ED JOINT ASPIRATION PROCEDURE - Joint Apsiration/Arthrocentesis Site: Paracentesis abdomen Local anesthesia: Lidocaine: 1% Plain Local Anesthetic Volume: 2cc Aspiration needle size: other (20) Aspirate appearance: other (yellow fluid) Dressing: adhesive dressing Complications: No Course - Vital Signs Last Recorded V/S: Last Vital Signs Temp 97.6 F 11/09/20 12:22 Pulse 100 11/09/20 14:22 Resp 17 11/09/20 14:22 BP 144/86 H 11/09/20 14:22 Pulse Ox 97 11/09/20 14:22 - Orders/Labs/Meds Orders: Active Orders 24 hr Category Date Time Status CULTURE BODY FLUID + SMEAR [RM] Stat Lab 11/09/20 13:40 Received Labs: Laboratory Tests 11/09/20 11/09/20 11/09/20 Range/Units 12:56 12:56 12:56 WBC 14.16 H (4.0-11.0) K/uL RBC 3.04 L (4.50-5.90) M/uL Hgb 10.8 L (13.0-17.0) g/dL Hct 30.9 L (38.0-50.0) % MCV 101.6 H (80.0-98.0) fL MCH 35.5 H (27.0-32.0) pg MCHC 35.0 (31.0-37.0) g/dL RDW Std Deviation 55.5 (28.0-62.0) fl RDW Coeff of Jannette 15 (11.0-15.0) % Plt Count 175 (150-400) K/uL MPV 9.50 (7.40-12.00) fL Neut % (Auto) 77.1 (48.0-80.0) % Lymph % (Auto) 12.3 L (16.0-40.0) % [place] % (Auto) 8.1 (0.0-15.0) % Eos % (Auto) 1.9 (0.0-7.0) % Baso % (Auto) 0.6 (0.0-1.5) % Neut # (Auto) 10.9 H (1.4-5.7) K/uL Lymph # (Auto) 1.7 (0.6-2.4) K/uL [place] # (Auto) 1.2 H (0.0-0.8) K/uL Eos # (Auto) 0.3 (0.0-0.7) K/uL Baso # (Auto) 0.1 (0.0-0.1) K/uL Nucleated RBC % 0.0 /100WBC Nucleated RBCs # 0 K/uL INR 2.11 APTT 31.9 H (18.6-31.3) SEC Sodium 135 L (136-148) mmol/L Potassium 3.4 L (3.5-5.1) mmol/L Chloride 101 (98-107) mmol/L Carbon Dioxide 21.8 (21.0-32.0) mmol/L BUN 6 L (7.0-18.0) mg/dL Creatinine 0.6 L (0.8-1.3) mg/dL Est Cr Clr Drug Dosing 167.29 mL/min Estimated GFR (MDRD) > 60.0 ml/min Glucose 108 H (74-106) mg/dL Calcium 8.0 L (8.5-10.1) mg/dL Total Bilirubin 11.2 H (0.2-1.0) mg/dL AST 106 H (15-37) IU/L ALT 46 (14-63) IU/L Alkaline Phosphatase 524 H (46-116) U/L Total Protein 8.3 H (6.4-8.2) g/dL Albumin 2.0 L (3.4-5.0) g/dL Globulin 6.3 H (2.6-4.0) g/dL Albumin/Globulin Ratio 0.3 L (0.9-1.6) Fluid Type Fluid Color Fluid Appearance Fluid WBC /uL Fluid RBC /uL Fluid Mononuclear Cell % Fl Polymorphonucl Cell % Fluid Glucose mg/dL Fluid Total Protein g/dL 11/09/20 Range/Units 13:40 WBC (4.0-11.0) K/uL RBC (4.50-5.90) M/uL Hgb (13.0-17.0) g/dL Hct (38.0-50.0) % MCV (80.0-98.0) fL MCH (27.0-32.0) pg MCHC (31.0-37.0) g/dL RDW Std Deviation (28.0-62.0) fl RDW Coeff of Jannette (11.0-15.0) % Plt Count (150-400) K/uL MPV (7.40-12.00) fL Neut % (Auto) (48.0-80.0) % Lymph % (Auto) (16.0-40.0) % [place] % (Auto) (0.0-15.0) % Eos % (Auto) (0.0-7.0) % Baso % (Auto) (0.0-1.5) % Neut # (Auto) (1.4-5.7) K/uL Lymph # (Auto) (0.6-2.4) K/uL [place]ade # (Auto) (0.0-0.8) K/uL Eos # (Auto) (0.0-0.7) K/uL Baso # (Auto) (0.0-0.1) K/uL Nucleated RBC % /100WBC Nucleated RBCs # K/uL INR APTT (18.6-31.3) SEC Sodium (136-148) mmol/L Potassium (3.5-5.1) mmol/L Chloride (98-107) mmol/L Carbon Dioxide (21.0-32.0) mmol/L BUN (7.0-18.0) mg/dL Creatinine (0.8-1.3) mg/dL Est Cr Clr Drug Dosing mL/min Estimated GFR (MDRD) ml/min Glucose (74-106) mg/dL Calcium (8.5-10.1) mg/dL Total Bilirubin (0.2-1.0) mg/dL AST (15-37) IU/L ALT (14-63) IU/L Alkaline Phosphatase (46-116) U/L Total Protein (6.4-8.2) g/dL Albumin (3.4-5.0) g/dL Globulin (2.6-4.0) g/dL Albumin/Globulin Ratio (0.9-1.6) Fluid Type PER Fluid Color YELLOW Fluid Appearance CLEAR Fluid WBC 106 /uL Fluid RBC < 3000 /uL Fluid Mononuclear Cell 86 % Fl Polymorphonucl Cell 14 % Fluid Glucose 114 mg/dL Fluid Total Protein 2.1 g/dL - Re-Assessments/Exams Free Text/Narrative Re-Assessment/Exam: 11/09/20 14:04 Patient had a paracentesis in the ED we drained 1.8 L. Patient tolerated well. Patient will be discharged home. 11/09/20 15:01 Paracentesis fluid cell count reviewed. Culture still pending will discharge patient home. Departure - Departure Time of Disposition: 15:02 Disposition: Home, Self-Care 01 Condition: Good Clinical Impression: Ascites - Discharge Information *PRESCRIPTION DRUG MONITORING PROGRAM REVIEWED*: Not Applicable *COPY OF PRESCRIPTION DRUG MONITORING REPORT IN PATIENT RACHELL: Not Applicable Instructions: Ascites Referrals: PCP,None [Primary Care Provider] - Forms: ED Department Discharge Additional Instructions: The following information is given to patients seen in the emergency department who are being discharged to home. This information is to outline your options for follow-up care. We provide all patients seen in our emergency department with a follow-up referral. The need for follow-up, as well as the timing and circumstances, are variable depending upon the specifics of your emergency department visit. If you don't have a primary care physician on staff, we will provide you with a referral. We always advise you to contact your personal physician following an emergency department visit to inform them of the circumstance of the visit and for follow-up with them and/or the need for any referrals to a consulting specialist. The emergency department will also refer you to a specialist when appropriate. This referral assures that you have the opportunity for follow-up care with a specialist. All of these measure are taken in an effort to provide you with optimal care, which includes your follow-up. Under all circumstances we always encourage you to contact your private physician who remains a resource for coordinating your care. When calling for follow-up care, please make the office aware that this follow-up is from your recent emergency room visit. If for any reason you are refused follow-up, please contact the [facility] Emergency Department at and asked to speak to the emergency department charge nurse. Please follow up with your primary care physician. If you do not have a primary care physician, see below: [facility] [address] [place] [id number] My [facility] [address] [place] [address] Presented today for patricia distention. We were able to drain about 1.8 L of of your abdomen. We also sent the fluid for analysis does not show any acute infections. Please continue to follow-up with your primary care physician if you have any other concerns complaints please return to the ED. Sepsis Event Note (ED) - Evaluation Sepsis Screening Result: No Definite Risk - Focused Exam Vital Signs: Vital Signs Temp Pulse Resp BP Pulse Ox 11/09/20 14:22 100 17 144/86 H 97 11/09/20 12:22 97.6 F 101 H 17 127/77 98 - My Orders Last 24 Hours: My Active Orders 11/09/20 13:40 CULTURE BODY FLUID + SMEAR [RM] Stat - Assessment/Plan Last 24 Hours: My Active Orders 11/09/20 13:40 CULTURE BODY FLUID + SMEAR [RM] Stat Plan: Patient is a 40-year-old male presents today for abdominal distention. Patient has no abdominal tenderness on exam will obtain labs and likely discharge.
[2020-11-09 13:36] LABS: BLOOD UREA NITROGEN,BUN 6 mg/dL (7.0-18.0); CARBON DIOXIDE,CO2 21.8 mmol/L (21.0-32.0); CHLORIDE,CL 101 mmol/L (98-107); GLUCOSE RANDOM 108 mg/dL (74-106); POTASSIUM,K 3.4 mmol/L (3.5-5.1); SODIUM,NA 135 mmol/L (136-148)
== END 2020-11-09 15:15 | disposition home or self-care (01) ==
LOC: MW.ED 11:26
DX: R18.8 Other ascites (principal)
CPT/HCPCS: 36415; 49083; 80053; 82945; 84157; 85025; 85610; 85730; 87070; 87205; 89050; 99283; 99284-25

== ENCOUNTER 2020-11-23 10:46 | Emergency (ER) | payer OTHER ==
[2020-11-23] MEDS ORDERED: Sodium Chloride 0.9% 1,000 ML IV ONE (11:18)
--- NOTE | 2020-11-23 11:25 | EDM.PDOC ---
ED HPI GENERAL MEDICAL PROBLEM - General Chief Complaint: Abdominal Pain Stated Complaint: ASCITIES Time Seen by Provider: 11/23/20 10:52 Source of Information: Reports: Patient History Limitations: Reports: No Limitations - History of Present Illness INITIAL COMMENTS - FREE TEXT/NARRATIVE: Patient is a 40-year-old male with a history of liver cirrhosis presents today for abdominal distention. Patient had a distention for the past few months. Patient frequently come to the ER to have paracentesis. Patient is told to follow-up with GI but has since does not follow-up with anyone. Patient states that today his belly is became distended since his last tap. Patient has no abdominal pain has been tolerating p.o. but does feel some fatigue. Patient denies any fevers or chills. Abdominal Pain Pain Score (Numeric/FACES): 4 - Related Data Allergies Allergy/AdvReac Type Severity Reaction Status Date / Time No Known Allergies Allergy Verified 11/23/20 10:56 Home Meds: Home Meds Lactulose 20 gm PO TID 30 Days #473 ml 10/19/20 [Rx] Past Medical History - Past Health History Medical/Surgical History: Denies Medical/Surgical History HEENT History: Reports: None Cardiovascular History: Reports: None Respiratory History: Reports: None Gastrointestinal History: Reports: Cirrhosis, Other (See Below) Other Gastrointestinal History: Mass on Liver Genitourinary History: Reports: UTI, Recurrent Musculoskeletal History: Reports: Other (See Below) Other Musculoskeletal History: lower extremity pain from gout Neurological History: Reports: None Psychiatric History: Reports: None Endocrine/Metabolic History: Reports: None Hematologic History: Reports: None Immunologic History: Reports: None Oncologic (Cancer) History: Reports: None Dermatologic History: Reports: None - Infectious Disease History Infectious Disease History: Reports: Chicken Pox - Past Surgical History Head Surgeries/Procedures: Reports: None HEENT Surgical History: Reports: None Cardiovascular Surgical History: Reports: None Respiratory Surgical History: Reports: None GI Surgical History: Reports: None Male Surgical History: Reports: None Endocrine Surgical History: Reports: None Neurological Surgical History: Reports: None Musculoskeletal Surgical History: Reports: None Oncologic Surgical History: Reports: None Dermatological Surgical History: Reports: None Social & Family History - Family History Family Medical History: No Pertinent Family History Cardiac: Reports: Hypertension - Tobacco Use Tobacco Use Status *Q: Never Tobacco User - Caffeine Use Caffeine Use: Reports: Coffee ED ROS GENERAL - Review of Systems Review Of Systems: See Below Constitutional: Reports: No Symptoms HEENT: Reports: No Symptoms Respiratory: Reports: No Symptoms Cardiovascular: Reports: No Symptoms Endocrine: Reports: No Symptoms GI/Abdominal: Reports: No Symptoms : Reports: No Symptoms Musculoskeletal: Reports: No Symptoms Skin: Reports: No Symptoms Neurological: Reports: No Symptoms Psychiatric: Reports: No Symptoms Hematologic/Lymphatic: Reports: No Symptoms Immunologic: Reports: No Symptoms ED EXAM, GI/ABD - Physical Exam Exam: See Below Exam Limited By: No Limitations General Appearance: Alert, WD/WN, No Apparent Distress Cardiovascular: Normal Peripheral Pulses GI/Abdominal Exam: Normal Bowel Sounds, Non-Tender, Distended Extremities: Normal Inspection, Normal Range of Motion Neurological: Alert, Oriented, CN II-XII Intact, Normal Cognition, Normal Gait Course - Vital Signs Last Recorded V/S: Last Vital Signs Temp 99.0 F 11/23/20 12:06 Pulse 112 H 11/23/20 12:06 Resp 20 11/23/20 12:06 BP 154/78 H 11/23/20 12:06 Pulse Ox 97 11/23/20 12:06 - Orders/Labs/Meds Orders: Active Orders 24 hr Category Date Time Status CULTURE BODY FLUID + SMEAR [RM] Stat Lab 11/23/20 11:53 Received Labs: Laboratory Tests 11/23/20 11/23/20 11/23/20 Range/Units 11:30 11:30 11:53 WBC 10.90 (4.0-11.0) K/uL RBC 2.73 L (4.50-5.90) M/uL Hgb 9.9 L (13.0-17.0) g/dL Hct 28.4 L (38.0-50.0) % MCV 104.0 H (80.0-98.0) fL MCH 36.3 H (27.0-32.0) pg MCHC 34.9 (31.0-37.0) g/dL RDW Std Deviation 57.2 (28.0-62.0) fl RDW Coeff of Jannette 15 (11.0-15.0) % Plt Count 112 L (150-400) K/uL MPV 9.50 (7.40-12.00) fL Neut % (Auto) 81.0 H (48.0-80.0) % Lymph % (Auto) 9.0 L (16.0-40.0) % Clayton % (Auto) 8.1 (0.0-15.0) % Eos % (Auto) 1.5 (0.0-7.0) % Baso % (Auto) 0.4 (0.0-1.5) % Neut # (Auto) 8.8 H (1.4-5.7) K/uL Lymph # (Auto) 1.0 (0.6-2.4) K/uL Clayton # (Auto) 0.9 H (0.0-0.8) K/uL Eos # (Auto) 0.2 (0.0-0.7) K/uL Baso # (Auto) 0.0 (0.0-0.1) K/uL Nucleated RBC % 0.0 /100WBC Nucleated RBCs # 0 K/uL Sodium 134 L (136-148) mmol/L Potassium 3.2 L (3.5-5.1) mmol/L Chloride 98 (98-107) mmol/L Carbon Dioxide 24.9 (21.0-32.0) mmol/L BUN 7 (7.0-18.0) mg/dL Creatinine 0.6 L (0.8-1.3) mg/dL Est Cr Clr Drug Dosing 162.02 mL/min Estimated GFR (MDRD) > 60.0 ml/min Glucose 111 H (74-106) mg/dL Calcium 8.3 L (8.5-10.1) mg/dL Phosphorus 3.2 (2.6-4.7) mg/dL Magnesium 1.2 L (1.8-2.4) mg/dL Total Bilirubin 14.7 H (0.2-1.0) mg/dL AST 157 H (15-37) IU/L ALT 63 (14-63) IU/L Alkaline Phosphatase 636 H (46-116) U/L Total Protein 8.4 H (6.4-8.2) g/dL Albumin 1.9 L (3.4-5.0) g/dL Globulin 6.5 H (2.6-4.0) g/dL Albumin/Globulin Ratio 0.3 L (0.9-1.6) Fluid Type PER Fluid Color YELLOW Fluid Appearance CLEAR Fluid WBC 83 /uL Fluid RBC < 3000 /uL Fluid Mononuclear Cell 95 % Fl Polymorphonucl Cell 5 % Fluid Glucose 109 mg/dL Fluid Total Protein 2.4 g/dL Meds: Medications Discontinued Medications Generic Name Dose Route Start Last Admin Trade Name Sherri PRN Reason Stop Dose Admin Sodium Chloride 1,000 mls @ 999 mls/hr 11/23/20 11:18 11/23/20 11:29 Normal Saline IV 11/23/20 12:18 999 mls/hr .BOLUS ONE Administration Magnesium Oxide 800 mg 11/23/20 12:23 11/23/20 12:31 Magnesium Oxide 400 Mg Tab PO 11/23/20 12:24 800 mg ONETIME ONE Administration Octyl Cyanoacrylate 1 applic 11/23/20 12:00 11/23/20 12:04 Octyl 2-Cyanoacrylate 1 Tube TOP 11/23/20 12:01 1 applic ONETIME ONE Administration Octyl Cyanoacrylate Confirm 11/23/20 12:01 11/23/20 12:06 Octyl 2-Cyanoacrylate 1 Tube Administered 11/23/20 12:02 Not Given Dose 1 applic .ROUTE .STK-MED ONE Potassium Chloride 40 meq 11/23/20 12:24 11/23/20 12:31 Potassium Chloride 10% 20 Meq/15 Ml Soln 30 Ml Ud Cup PO 11/23/20 12:25 40 meq ONETIME ONE Administration - Re-Assessments/Exams Free Text/Narrative Re-Assessment/Exam: 11/23/20 12:55 Patient had a paracentesis does not appear to fluids infected. Patient hepatit is magnesium repleted. Patient be discharged home again was told he is to follow-up with GI patient that she has appointment this . Patient bilirubin is elevated and was told about that as well. Departure - Departure Time of Disposition: 12:55 Disposition: Home, Self-Care 01 Condition: Good Clinical Impression: Ascites due to alcoholic cirrhosis - Discharge Information *PRESCRIPTION DRUG MONITORING PROGRAM REVIEWED*: Not Applicable *COPY OF PRESCRIPTION DRUG MONITORING REPORT IN PATIENT RACHELL: Not Applicable Instructions: Alcoholic Liver Disease Referrals: PCP,None [Primary Care Provider] - Forms: ED Department Discharge Additional Instructions: The following information is given to patients seen in the emergency department who are being discharged to home. This information is to outline your options for follow-up care. We provide all patients seen in our emergency department with a follow-up referral. The need for follow-up, as well as the timing and circumstances, are variable depending upon the specifics of your emergency department visit. If you don't have a primary care physician on staff, we will provide you with a referral. We always advise you to contact your personal physician following an emergency department visit to inform them of the circumstance of the visit and for follow-up with them and/or the need for any referrals to a consulting specialist. The emergency department will also refer you to a specialist when appropriate. This referral assures that you have the opportunity for follow-up care with a specialist. All of these measure are taken in an effort to provide you with optimal care, which includes your follow-up. Under all circumstances we always encourage you to contact your private physician who remains a resource for coordinating your care. When calling for follow-up care, please make the office aware that this follow-up is from your recent emergency room visit. If for any reason you are refused follow-up, please contact the Emergency Department at and asked to speak to the emergency department charge nurse. Please follow up with your primary care physician. If you do not have a primary care physician, see below: [facility] [address] [place] [id number] My [facility] [address] [place] [id number] You are seen today for abdominal distention. We removed about a liter and a half of fluid and also analyzed did not show any infection. Again you need to follow-up with GI soon as possible. If you have any increased fever chills nausea vomiting or other symptoms please return to the ED. Sepsis Event Note (ED) - Evaluation Sepsis Screening Result: No Definite Risk - Focused Exam Vital Signs: Vital Signs Temp Pulse Resp BP Pulse Ox 11/23/20 12:06 99.0 F 112 H 20 154/78 H 97 11/23/20 10:56 97.6 F 116 H 15 148/76 H 98 - My Orders Last 24 Hours: My Active Orders 11/23/20 11:53 CULTURE BODY FLUID + SMEAR [RM] Stat - Assessment/Plan Last 24 Hours: My Active Orders 11/23/20 11:53 CULTURE BODY FLUID + SMEAR [RM] Stat Plan: Patient is a 40-year-old man who presents today for abdominal distention. Patient has history of liver cirrhosis. Patient has been told repeatedly to follow-up with hepatology but has not done so and continue to come to the ER for therapeutic taps. We keep explained to the patient that this is not an ER procedure and that he needs obtain follow-up. Patient has not follow-up with anyone [facility]. Patient current is no abdominal te nderness no fever chills looks well. We will perform a therapeutic tap block be discharged home. Thoracentesis - Thoracentesis Thoracentesis Indication: other (perioneal ) Location: Left Skin prep: Sterile Drapes Ultrasound guided: Yes Local anesthesia: lidocaine 1 % Local anesthesia volume: 5cc Number of Attempts: 1 Device Used: 8 Fr kit device, other Fluid: yellow Fluids sent: gram stain and culture, cell count Complications: No Dressing: adhesive dressing Thoracentesis comment: We did a paracentesis on the patient left lower abdomen yellow fluid was taken out about 1.6 L.
[2020-11-23] MEDS ORDERED: Octyl 2-Cyanoacrylate 1 Tube TOP ONE (12:00)
[2020-11-23] MEDS ORDERED: Octyl 2-Cyanoacrylate 1 Tube ONE (12:01)
[2020-11-23 12:06] LABS: BLOOD UREA NITROGEN,BUN 7 mg/dL (7.0-18.0); CARBON DIOXIDE,CO2 24.9 mmol/L (21.0-32.0); CHLORIDE,CL 98 mmol/L (98-107); GLUCOSE RANDOM 111 mg/dL (74-106); POTASSIUM,K 3.2 mmol/L (3.5-5.1); SODIUM,NA 134 mmol/L (136-148)
[2020-11-23] MEDS ORDERED: Magnesium Oxide 400 MG Tab PO ONE (12:23)
[2020-11-23] MEDS ORDERED: Potassium Chloride 10% 20 MEQ/15 ML Soln 30 ML UD Cup PO ONE (12:24)
== END 2020-11-23 13:07 | disposition home or self-care (01) ==
LOC: MW.ED 10:46
DX: K70.31 Alcoholic cirrhosis of liver with ascites (principal)
CPT/HCPCS: 36415; 49083; 80053; 82945; 83735; 84100; 84157; 85025; 87070; 87205; 89050; 99284; A9270; J7030

== ENCOUNTER 2021-06-08 15:57 | Emergency (ER) | payer OTHER ==
[2021-06-08] MEDS ORDERED: LORazepam 2 MG/ML SDV IVPUSH ONE (16:01)
--- NOTE | 2021-06-08 16:03 | EDM.PDOC ---
ED HPI GENERAL MEDICAL PROBLEM - General Chief Complaint: Drug or Alcohol Abuse Stated Complaint: EMS/ ALCOHOLISM Time Seen by Provider: 06/08/21 15:58 Source of Information: Reports: Patient History Limitations: Reports: No Limitations - History of Present Illness INITIAL COMMENTS - FREE TEXT/NARRATIVE: 40-year-old male past medical history cirrhosis, alcohol abuse presents for multiple complaints. Patient states that his last drink was last night. He states he typically drinks about 1/5 of alcohol per day. He feels shaky and anxious. He wants to be treated for alcohol withdrawal. Patient also endorses abdominal pain. He notes a history of cirrhosis and ascites. He has had multiple paracentesis procedures. He is also concern for blood poisoning. He notes a rash on his lower extremities. He denies fevers. - Related Data Allergies Allergy/AdvReac Type Severity Reaction Status Date / Time No Known Allergies Allergy Verified 06/08/21 15:59 Home Meds: Home Meds . [No Known Home Meds] 06/08/21 [History] Past Medical History - Past Health History Medical/Surgical History: Denies Medical/Surgical History HEENT History: Reports: None Cardiovascular History: Reports: None Respiratory History: Reports: None Gastrointestinal History: Reports: Cirrhosis, Other (See Below) Other Gastrointestinal History: Mass on Liver Genitourinary History: Reports: UTI, Recurrent Musculoskeletal History: Reports: Other (See Below) Other Musculoskeletal History: lower extremity pain from gout Neurological History: Reports: None Psychiatric History: Reports: None Endocrine/Metabolic History: Reports: None Hematologic History: Reports: None Immunologic History: Reports: None Oncologic (Cancer) History: Reports: None Dermatologic History: Reports: None - Infectious Disease History Infectious Disease History: Reports: Chicken Pox - Past Surgical History Head Surgeries/Procedures: Reports: None HEENT Surgical History: Reports: None Cardiovascular Surgical History: Reports: None Respiratory Surgical History: Reports: None GI Surgical History: Reports: None Male Surgical History: Reports: None Endocrine Surgical History: Reports: None Neurological Surgical History: Reports: None Musculoskeletal Surgical History: Reports: None Oncologic Surgical History: Reports: None Dermatological Surgical History: Reports: None Social & Family History - Family History Family Medical History: No Pertinent Family History Cardiac: Reports: Hypertension - Caffeine Use Caffeine Use: Reports: Coffee ED ROS GENERAL - Review of Systems Review Of Systems: Comprehensive ROS is negative, except as noted in HPI. ED EXAM, GENERAL - Physical Exam Exam: See Below Exam Limited By: No Limitations General Appearance: Alert, WD/WN, No Apparent Distress Eye Exam: Bilateral Eye: Other (scleral icterus) Ears: Normal External Exam Throat/Mouth: Normal Voice, No Airway Compromise Head: Atraumatic, Normocephalic Neck: Normal Inspection Respiratory/Chest: No Respiratory Distress, Lungs Clear, Normal Breath Sounds, No Accessory Muscle Use Cardiovascular: Normal Peripheral Pulses, Regular Rate, Rhythm GI/Abdominal: Soft, Other (mild distention, non-tender) Extremities: Normal Inspection Neurological: Alert, Normal Cognition Psychiatric: Normal Affect, Normal Mood Skin Exam: Warm, Dry, Intact, Jaundice Course - Vital Signs Last Recorded V/S: Last Vital Signs Temp 98.9 F 06/08/21 16:00 Pulse 102 H 06/08/21 16:30 Resp 18 06/08/21 16:30 BP 136/78 06/08/21 16:30 Pulse Ox 96 06/08/21 16:30 - Orders/Labs/Meds Orders: Active Orders 24 hr Category Date Time Status REFLEX LACTIC ACID YES OR NO [CHEM] Routine Lab 06/08/21 16:37 Received Sodium Chloride 0.9% [Normal Saline] 500 ml Med 06/08/21 16:45 Active IV .BOLUS chlordiazePOXIDE [Librium] Med 06/08/21 17:18 Once 50 mg PO ONETIME ONE Saline Lock Insert [OM.PC] Stat Oth 06/08/21 16:00 Ordered Medication Orders Sodium Chloride (Normal Saline) 500 mls @ 999 mls/hr IV .BOLUS PRIYANK Last Admin: 06/08/21 16:45 Dose: 999 mls/hr Documented by: MILDRED Labs: Laboratory Tests 06/08/21 06/08/21 06/08/21 Range/Units 16:00 16:00 16:00 WBC 8.60 (4.0-11.0) K/uL RBC 3.46 L (4.50-5.90) M/uL Hgb 10.2 L (13.0-17.0) g/dL Hct 30.4 L (38.0-50.0) % MCV 87.9 (80.0-98.0) fL MCH 29.5 (27.0-32.0) pg MCHC 33.6 (31.0-37.0) g/dL RDW Std Deviation 57.1 (28.0-62.0) fl RDW Coeff of Jannette 18 H (11.0-15.0) % Plt Count 115 L (150-400) K/uL MPV 9.50 (7.40-12.00) fL Neut % (Auto) 82.1 H (48.0-80.0) % Lymph % (Auto) 12.2 L (16.0-40.0) % Norman % (Auto) 3.5 (0.0-15.0) % Eos % (Auto) 0.9 (0.0-7.0) % Baso % (Auto) 1.3 (0.0-1.5) % Neut # (Auto) 7.1 H (1.4-5.7) K/uL Lymph # (Auto) 1.1 (0.6-2.4) K/uL Norman # (Auto) 0.3 (0.0-0.8) K/uL Eos # (Auto) 0.1 (0.0-0.7) K/uL Baso # (Auto) 0.1 (0.0-0.1) K/uL Nucleated RBC % 0.0 /100WBC Nucleated RBCs # 0 K/uL Sodium 135 L (136-148) mmol/L Potassium 3.4 L (3.5-5.1) mmol/L Chloride 96 L (98-107) mmol/L Carbon Dioxide 22.5 (21.0-32.0) mmol/L BUN 6 L (7.0-18.0) mg/dL Creatinine 0.6 L (0.8-1.3) mg/dL Est Cr Clr Drug Dosing 167.29 mL/min Estimated GFR (MDRD) > 60.0 ml/min Glucose 80 (74-106) mg/dL Lactic Acid 4.0 H* (0.4-2.0) mmol/L Calcium 8.6 (8.5-10.1) mg/dL Magnesium 1.4 L (1.8-2.4) mg/dL Total Bilirubin 6.2 H (0.2-1.0) mg/dL AST 161 H (15-37) IU/L ALT 44 (14-63) IU/L Alkaline Phosphatase 285 H (46-116) U/L Total Protein 9.4 H (6.4-8.2) g/dL Albumin 2.9 L (3.4-5.0) g/dL Globulin 6.5 H (2.6-4.0) g/dL Albumin/Globulin Ratio 0.5 L (0.9-1.6) Lipase 141 (73-393) U/L Ethyl Alcohol 127 mg/dL SARS-CoV-2 RNA (KIRK) (NEGATIVE) 06/08/21 Range/Units 16:10 WBC (4.0-11.0) K/uL RBC (4.50-5.90) M/uL Hgb (13.0-17.0) g/dL Hct (38.0-50.0) % MCV (80.0-98.0) fL MCH (27.0-32.0) pg MCHC (31.0-37.0) g/dL RDW Std Deviation (28.0-62.0) fl RDW Coeff of Jannette (11.0-15.0) % Plt Count (150-400) K/uL MPV (7.40-12.00) fL Neut % (Auto) (48.0-80.0) % Lymph % (Auto) (16.0-40.0) % Norman % (Auto) (0.0-15.0) % Eos % (Auto) (0.0-7.0) % Baso % (Auto) (0.0-1.5) % Neut # (Auto) (1.4-5.7) K/uL Lymph # (Auto) (0.6-2.4) K/uL Norman # (Auto) (0.0-0.8) K/uL Eos # (Auto) (0.0-0.7) K/uL Baso # (Auto) (0.0-0.1) K/uL Nucleated RBC % /100WBC Nucleated RBCs # K/uL Sodium (136-148) mmol/L Potassium (3.5-5.1) mmol/L Chloride (98-107) mmol/L Carbon Dioxide (21.0-32.0) mmol/L BUN (7.0-18.0) mg/dL Creatinine (0.8-1.3) mg/dL Est Cr Clr Drug Dosing mL/min Estimated GFR (MDRD) ml/min Glucose (74-106) mg/dL Lactic Acid (0.4-2.0) mmol/L Calcium (8.5-10.1) mg/dL Magnesium (1.8-2.4) mg/dL Total Bilirubin (0.2-1.0) mg/dL AST (15-37) IU/L ALT (14-63) IU/L Alkaline Phosphatase (46-116) U/L Total Protein (6.4-8.2) g/dL Albumin (3.4-5.0) g/dL Globulin (2.6-4.0) g/dL Albumin/Globulin Ratio (0.9-1.6) Lipase (73-393) U/L Ethyl Alcohol mg/dL SARS-CoV-2 RNA (KIRK) NEGATIVE (NEGATIVE) Meds: Medications Generic Name Dose Route Start Last Admin Trade Name Freq PRN Reason Stop Dose Admin Sodium Chloride 500 mls @ 999 mls/hr 06/08/21 16:45 06/08/21 16:45 Normal Saline IV 999 mls/hr .BOLUS PRIYANK Administration Discontinued Medications Generic Name Dose Route Start Last Admin Trade Name Freq PRN Reason Stop Dose Admin Sodium Chloride 500 mls @ 999 mls/hr 06/08/21 16:39 06/08/21 16:46 Normal Saline IV 06/08/21 17:09 Not Given .Bolus ONE Lorazepam 1 mg 06/08/21 16:01 06/08/21 16:12 Lorazepam 2 Mg/Ml Sdv IVPUSH 06/08/21 16:02 1 mg ONETIME ONE Administration - Re-Assessments/Exams Free Text/Narrative Re-Assessment/Exam: 06/08/21 16:05 Will get labs. Will give ativan 1mg although patient does not appear to be in alcohol withdrawal. CIWA = 3 06/08/21 16:38 Patient's alcohol level 120s. Additional labs show anemia, transaminitis, and bilirubinemia expected considering patient's PMHx of cirrhosis. 06/08/21 16:40 Patient does have elevated lactate; will give 500cc bolus in addition to 500cc bolus started by EMS. Patient has had fluid overload requiring diuretics so will not give large IVFB. I do not suspect infection. Will f/u COVID test and reassessment. 06/08/21 17:18 Patient is feeling better after Ativan. Will give a dose of Librium now. Patient does not meet qualifications for inpatient alcohol detox. I did speak with patient at length regarding quitting alcohol and how he needs to do this under the advisement of a physician or professional. Outpatient resources were given to the patient for alcohol detoxification. I did inquire if the patient would be interested in inpatient alcohol detox. Return precautions discussed at length. Departure - Departure Time of Disposition: 17:19 Disposition: Home, Self-Care 01 Condition: Good Clinical Impression: Alcohol withdrawal Qualifiers: Complication of substance-induced condition: uncomplicated Qualified Code(s): F10.230 - Alcohol dependence with withdrawal, uncomplicated - Discharge Information Instructions: Alcohol Withdrawal Syndrome, [id number] Forms: ED Department Discharge Additional Instructions: The following information is given to patients seen in the emergency department who are being discharged to home. This information is to outline your options for follow-up care. We provide all patients seen in our emergency department with a follow-up referral. The need for follow-up, as well as the timing and circumstances, are variable depending upon the specifics of your emergency department visit. If you don't have a primary care physician on staff, we will provide you with a referral. We always advise you to contact your personal physician following an emergency department visit to inform them of the circumstance of the visit and for follow-up with them and/or the need for any referrals to a consulting specialist. The emergency department will also refer you to a specialist when appropriate. This referral assures that you have the opportunity for follow-up care with a specialist. All of these measure are taken in an effort to provide you with optimal care, which includes your follow-up. Under all circumstances we always encourage you to contact your private physician who remains a resource for coordinating your care. When calling for follow-up care, please make the office aware that this follow-up is from your recent emergency room visit. If for any reason you are refused follow-up, please contact the [facility] Emergency Department at and asked to speak to the emergency department charge nurse. Please follow up with your primary care physician. If you do not have a primary care physician, see below: [facility] [address] [place] [phone] [facility] [address] [place] [phone] [facility] [address] [place] [address] Sepsis Event Note (ED) - Focused Exam Vital Signs: Vital Signs Temp Pulse Resp BP Pulse Ox 06/08/21 16:30 102 H 18 136/78 96 06/08/21 16:00 98.9 F 114 H 16 161/86 H 97 - My Orders Last 24 Hours: My Active Orders 06/08/21 16:00 Saline Lock Insert [OM.PC] Stat 06/08/21 16:37 REFLEX LACTIC ACID YES OR NO [CHEM] Routine 06/08/21 16:45 Sodium Chloride 0.9% [Normal Saline] 500 ml IV .BOLUS 06/08/21 17:18 chlordiazePOXIDE [Librium] 50 mg PO ONETIME ONE - Assessment/Plan Last 24 Hours: My Active Orders 06/08/21 16:00 Saline Lock Insert [OM.PC] Stat 06/08/21 16:37 REFLEX LACTIC ACID YES OR NO [CHEM] Routine 06/08/21 16:45 Sodium Chloride 0.9% [Normal Saline] 500 ml IV .BOLUS 06/08/21 17:18 chlordiazePOXIDE [Librium] 50 mg PO ONETIME ONE
[2021-06-08 16:32] LABS: BLOOD UREA NITROGEN,BUN 6 mg/dL (7.0-18.0); CARBON DIOXIDE,CO2 22.5 mmol/L (21.0-32.0); CHLORIDE,CL 96 mmol/L (98-107); GLUCOSE RANDOM 80 mg/dL (74-106); LIPASE 141 U/L (73-393); POTASSIUM,K 3.4 mmol/L (3.5-5.1); SODIUM,NA 135 mmol/L (136-148)
[2021-06-08] MEDS ORDERED: Sodium Chloride 0.9% 500 ML IV ONE (16:39)
[2021-06-08] MEDS ORDERED: Sodium Chloride 0.9% 500 ML IV SCH (16:45)
[2021-06-08] MEDS ORDERED: chlordiazePOXIDE 25 MG Cap PO ONE (17:18)
== END 2021-06-08 17:33 | disposition home or self-care (01) ==
LOC: MW.ED 15:57
DX: F10.230 Alcohol dependence with withdrawal, uncomplicated (principal); Z20.822 Contact with and (suspected) exposure to COVID-19; Y90.6 Blood alcohol level of 120-199 mg/100 ml
CPT/HCPCS: 36415; 80053; 80307; 83605; 83690; 83735; 85025; 87635; 96374; 99285; A9270; J2060; J7040; U0002

== ENCOUNTER 2021-11-02 11:49 | Emergency (ER) | payer OTHER | END 2021-11-02 12:50 | disposition home or self-care (01) | LOC: MW.ED 11:49 | DX: F10.129 Alcohol abuse with intoxication, unspecified (principal) | CPT/HCPCS: 99284 ==

== ENCOUNTER 2022-05-10 16:41 | Emergency (ER) | payer OTHER ==
[2022-05-10] MEDS ORDERED: Sodium Chloride 0.9% 10 ML Syringe FLUSH PRN (16:43)
[2022-05-10] MEDS ORDERED: Sodium Chloride 0.9% 2.5 ML Syringe FLUSH PRN (16:43)
[2022-05-10] MEDS ORDERED: Sodium Chloride 0.9% 1,000 ML IV ONE (16:43)
[2022-05-10] MEDS ORDERED: Piperacillin/Tazobactam 4.5 GM in Sodium Chloride 0.9% 100 ML IV ONE (16:43)
[2022-05-10] MEDS ORDERED: Etomidate 2 MG/ML 20 ML SDV IVPUSH ONE (17:30)
[2022-05-10] MEDS ORDERED: propofoL 100 ML IV SCH (17:45)
[2022-05-10] MEDS ORDERED: Norepinephrine 4 MG in Dextrose 5% in Water 246 ML IV SCH ×2 (17:45)
[2022-05-10] MEDS ORDERED: Pantoprazole 80 MG in Sodium Chloride 0.9% 10 ML IVPUSH ONE (18:15)
[2022-05-10] MEDS ORDERED: Piperacillin/Tazobactam 4.5 GM AdvVial ONE (18:22)
[2022-05-10] MEDS ORDERED: Sodium Chloride 0.9% 50 ML ONE (18:22)
[2022-05-10 18:23] LABS: BLOOD UREA NITROGEN,BUN 107 mg/dL (7.0-18.0); CARBON DIOXIDE,CO2 7.4 mmol/L (21.0-32.0); CHLORIDE,CL 98 mmol/L (98-107); GLUCOSE RANDOM 75 mg/dL (74-106); LIPASE 205 U/L (73-393); SODIUM,NA 131 mmol/L (136-148)
[2022-05-10 18:27] LABS: ESTIMATED GFR 15 mL/min (>60)
[2022-05-10] MEDS: Succinylcholine 200 MG/10 ML MDV IV SCH ×2 (18:36→18:39)
[2022-05-10] MEDS ORDERED: Atropine 0.1 MG/ML 10 ML Syringe IVPUSH ONE (18:42)
[2022-05-10] MEDS ORDERED: DOPamine/Dextrose 5%-Water 400 MG/250 ML BAG IV SCH (18:45)
[2022-05-10] MEDS ORDERED: Lactulose Soln 10 GM/15 ML ML 473 ML Bottle RECTAL STA (19:07)
[2022-05-10] MEDS ORDERED: Phytonadione 10 MG in Sodium Chloride 0.9% 50 ML IV ONE (20:55)
== END 2022-05-10 22:00 ==
LOC: MW.ED 16:41
DX: R41.82 Altered mental status, unspecified (principal); K92.2 Gastrointestinal hemorrhage, unspecified; N17.9 Acute kidney failure, unspecified; Z20.822 Contact with and (suspected) exposure to COVID-19
CPT/HCPCS: 31500; 36415; 36430; 36556; 70450; 71045; 74176; 80053; 80305; 80307; 81001; 82140; 83605; 83690; 84484; 85025; 85610; 85730; 86850; 86900; 86901; 86920; 87040; 87077; 87154; 87186; 87635; 93005; 96365; 96367; 96375; 99285; C9113; J0330; J0461; J1265; J2543; J3430; J3490; J7030; P9012; P9016; P9017; 93010; 99291; 99292; U0002